=== PATIENT | male | born 1935 | race Caucasian/White ===

== ENCOUNTER 2021-08-06 16:02 | Inpatient (IN) | payer OTHER ==
[~2021-08-06] VITALS: Ht 185.4 cm; Wt 62.1 kg
[2021-08-06 16:07] VITALS: BP_SYST 163
--- NOTE | 2021-08-06 16:52 | NUR ---
Placed in room 07 . Placed on property assessment monitor, blood pressure machine and pulse oximeter. To gown for exam. Side rails up. Report given to ANGIE JAMES
--- NOTE | 2021-08-06 17:30 | NUR ---
A/OX4 VSS AT BEDSIDE, APPEARS TO BE IN NO ACUTE DISTRESS NOTED AT THIS TIME
[2021-08-06 18:13] LABS: BASOPHILS % (AUTO) 0.5 % (0.0-2.0); EOSINOPHILS % (AUTO) 0.2 % (0.0-4.0); HEMATOCRIT 30.3 % (36-54); HEMOGLOBIN 10.2 g/dL (14.0-18.0); LYMPHOCYTES # (AUTO) 0.6 K/uL (1.0-5.5); LYMPHOCYTES % (AUTO) 8.6 % (20.5-51.5); MEAN CORPUSCULAR HEMOGLOBIN 32 pg (27-31); MEAN CORPUSCULAR HGB CONC 34 % (32-36); MEAN CORPUSCULAR VOLUME 96 fL (79.0-98.0); MONOCYTES # (AUTO) 0.7 K/uL (0.0-1.0); MONOCYTES % (AUTO) 10.6 % (1.7-9.3); NEUTROPHILS # (AUTO) 5.4 K/uL (1.8-7.7); NEUTROPHILS % (AUTO) 80.1 % (40.0-70.0); PLATELET COUNT (AUTO) 155 K/uL (130-430); RED BLOOD CELL COUNT(AUTO) 3.15 MIL/uL (4.2-6.2); RED CELL DISTRIBUTION WIDTH 17.5 % (9.0-15.0); WHITE BLOOD COUNT (AUTO) 6.8 K/uL (4.8-10.8)
[2021-08-06 18:17] LABS: ANION GAP 6 (5-15); CALCIUM 7.9 mg/dL (8.4-11.0); CHLORIDE 97 mmol/L (98-107); CREATININE 0.84 mg/dL (0.55-1.30); GLUCOSE 91 mg/dL (70-99); POTASSIUM 4.5 mmol/L (3.5-5.1); SODIUM SERUM 127 mmol/L (136-145); UREA NITROGEN, BLOOD 24 mg/dL (8-21)
[2021-08-06 18:21] LABS: INR 1.3 (0.80-1.20); PROTHROMBIN TIME 12.9 SECS (9.5-12.5)
[2021-08-06 18:29] LABS: ALANINE AMINOTRANSFERASE 26 U/L (12-78); ALBUMIN 2.6 g/dL (3.4-4.8); ASPARTATE AMINOTRANSFERASE 35 U/L (10-37)
--- NOTE | 2021-08-06 19:20 | NUR ---
Critical lab value reported by lab. D-Dimer [id number]. Dr. Antony made aware.
--- NOTE | 2021-08-06 20:09 | NUR ---
PROVIDED A PILLOW TO PATIENT, NO OTHER NEEDS AT THIS TIME. RESTING IN BED WITH FAMILY AT BEDSIDE.
[2021-08-06] MEDS ORDERED: FUROSEMIDE 20 MG/2 ML VIAL IVP ONE (20:45)
[2021-08-06] MEDS ORDERED: MORPHINE 2 MG/ML INJ. SYRINGE IVP PRN (21:45)
[2021-08-06] MEDS ORDERED: ONDANSETRON HCL 4 MG/2 ML VIAL IVP PRN (21:45)
[2021-08-06] MEDS ORDERED: HYDROcodone/ACETAMIN 5-325 MG TAB (NORCO/ VICODIN) PO PRN (21:45)
--- NOTE | 2021-08-06 22:19 | NUR ---
Admit bed requested Patient will be admitted to care of . Admitted to TELE unit. Diagnosis CHF Inpatient (Yes or No) YES Observation (Yes or No) NO Orientation concerns or request close to nursing station (Yes or No) NO Covid Status NEGATIVE On vent or bipap NO Isolation requirements NO Needs a sitter NO From Home (Yes or if No enter name of facility) YES Requires Dialysis (Yes or No) NO Med Rec Completed (Yes of No) PENDING
--- NOTE | 2021-08-06 22:25 | NUR ---
# 20 gauge angiocath placed to . Use of asceptic technique. Opsite placed over site. Blood return noted. Blood for lab drawn from site. Flushed with 10 cc of normal saline. No evidence of infiltration noted. Patient tolerated well.
--- NOTE | 2021-08-06 22:29 | NUR ---
Patient will be admitted to care of TELE . Admitted to unit. Will go to room . Belongings list completed. Complete and up to date summary report printed. SBAR report to be given at bedside with opportunity for questions.
--- NOTE | 2021-08-06 22:50 | NUR ---
Admission Note Received patient from ER with diagnosis of CHF. Initial Plan of Care discussed-patient verbalized understanding. Oriented to room, call light, pain management and safety.
[2021-08-06 22:55] VITALS: BP_SYST 144
[2021-08-07] VITALS (7 sets, daily range): BP systolic 102–148
--- NOTE | 2021-08-07 04:27 | NUR ---
CONSULT CALLED FOR DR. CASILLAS I SPOKE TO MARIANO GALLEGOS REASON FOR CONSULT: CHF REQUESTING CONSULT:[employer] SALESPERSON PHONE NUMBER: [phone]
--- NOTE | 2021-08-07 06:14 | NUR ---
CLOSING NOTE PATIENT IN BED, SLEEPING COMFORTABLY. NO S/S OF ACUTE DISTRESS NOTED. BREATHING EVEN AND UNLABORED, HOB RAISED, NASAL CANULA ATTACHED PROPERLY ON 2L OF OXYGEN. IV SITE PATENT, NO SIGNS OF INFILTRATION OR INFECTION NOTED. ALL NEEDS MET THROUGHOUT SHIFT. FALL, SAFETY PRECAUTIONS MAINTAINED THROUGHOUT SHIFT. WILL CONTINUE TO MONITOR UNTIL PATIENT CARE IS ENDORSED TO ONCOMING DAYSHIFT NURSE.
[2021-08-07 07:53] LABS: BASOPHILS % (AUTO) 0.6 % (0.0-2.0); EOSINOPHILS % (AUTO) 0.4 % (0.0-4.0); HEMATOCRIT 29.4 % (36-54); LYMPHOCYTES # (AUTO) 0.6 K/uL (1.0-5.5); LYMPHOCYTES % (AUTO) 9.4 % (20.5-51.5); MEAN CORPUSCULAR HEMOGLOBIN 33 pg (27-31); MEAN CORPUSCULAR HGB CONC 34 % (32-36); MEAN CORPUSCULAR VOLUME 97 fL (79.0-98.0); MONOCYTES # (AUTO) 0.8 K/uL (0.0-1.0); MONOCYTES % (AUTO) 12.9 % (1.7-9.3); NEUTROPHILS % (AUTO) 76.7 % (40.0-70.0); PLATELET COUNT (AUTO) 153 K/uL (130-430); RED BLOOD CELL COUNT(AUTO) 3.04 MIL/uL (4.2-6.2); RED CELL DISTRIBUTION WIDTH 17.3 % (9.0-15.0); WHITE BLOOD COUNT (AUTO) 6.5 K/uL (4.8-10.8)
[2021-08-07] MEDS: IPRATROPIUM BROM 0.5 MG/2.5 ML VIAL.NEB (ATROVENT) INH SCH ×4 (08:03→23:00)
[2021-08-07 08:14] LABS: ANION GAP 3 (5-15); CALCIUM 7.8 mg/dL (8.4-11.0); CHLORIDE 101 mmol/L (98-107); CREATININE 0.76 mg/dL (0.55-1.30); GLUCOSE 69 mg/dL (70-99); PHOSPHORUS 3.7 mg/dL (2.7-4.5); POTASSIUM 3.9 mmol/L (3.5-5.1); SODIUM SERUM 133 mmol/L (136-145); UREA NITROGEN, BLOOD 18 mg/dL (8-21)
[2021-08-07] MEDS: CARVEDILOL 6.25 MG TABLET (COREG) PO SCH ×2 (09:00→23:17)
[2021-08-07] MEDS ORDERED: FUROSEMIDE 40 MG/4 ML VIAL IVP SCH (09:00)
[2021-08-07] MEDS: TAMSULOSIN HCL 0.4 MG CAP PO SCH (09:19)
[2021-08-07] MEDS: ASPIRIN 81 MG TAB.CHEW PO SCH (09:19)
[2021-08-07] MEDS: AMIODARONE HCL 200 MG TABLET PO SCH (09:32)
[2021-08-07] MEDS ORDERED: FUROSEMIDE 40 MG/4 ML VIAL IVP ONE (14:30)
--- NOTE | 2021-08-07 20:00 | NUR ---
Report received from Luna Bedolla. Pt a/o x4, vs stable, SR to SB with 1st degree av block. No sign of distress, denies any pain. Side rails up, call light within reach, bed alarm on, bed to lowest position. Assuming care for pt.
[2021-08-08] MEDS: ACETAMINOPHEN 325 MG TABLET PO PRN ×2 (00:40→12:55)
--- NOTE | 2021-08-08 06:00 | NUR ---
No significant changes, pt remains stable.
[2021-08-08] MEDS: IPRATROPIUM BROM 0.5 MG/2.5 ML VIAL.NEB (ATROVENT) INH SCH ×3 (07:39→15:00)
[2021-08-08 08:00] VITALS: BP_SYST 98
[2021-08-08] MEDS ORDERED: FUROSEMIDE 40 MG/4 ML VIAL IVP SCH (09:00)
[2021-08-08] MEDS: ASPIRIN 81 MG TAB.CHEW PO SCH (09:00)
[2021-08-08] MEDS: CARVEDILOL 6.25 MG TABLET (COREG) PO SCH (09:00)
[2021-08-08] MEDS: AMIODARONE HCL 200 MG TABLET PO SCH (09:00)
[2021-08-08] MEDS ORDERED: lisinopriL 5 MG TABLET PO SCH (09:00)
[2021-08-08] MEDS: TAMSULOSIN HCL 0.4 MG CAP PO SCH (09:00)
--- NOTE | 2021-08-08 09:04 | NUR ---
PT AAOX3 AM BLOOD PRESSURE MEDICATIONS NOT GIVEN SBP 98.
[2021-08-08] MEDS ORDERED: TAMS-11 PO (09:28)
[2021-08-08] MEDS ORDERED: FURO-149 PO (09:28)
--- NOTE | 2021-08-08 11:00 | NUR ---
DISCHARGE ORDER NOTED.PT AWAITING CM TO SET UP HOME HEALTH.PT DAUGHTER FOR AWAITING TRANSPORTATION.
[2021-08-08 12:00] VITALS: BP_SYST 116
[2021-08-08 14:07] VITALS: BP_SYST 114
[2021-08-08 14:51] VITALS: BP_SYST 117
--- NOTE | 2021-08-08 15:29 | NUR ---
Patient will Dc home, follow up PDV has been shcedule please provide copy to patient Dr. Russell PCP Date& Time: 08/11/21 at 2:00PM
--- NOTE | 2021-08-08 15:45 | NUR ---
DAUGHTER AT BEDSIDE.PATIENT AAOX4 NAD NOTED. DISCHARGE EDUCATION PROVIDED. PT AND DAUGHTER VERBALIZED UNDERSTANDING OF TEACHINGS.LEFT FA PIV DISCONTINUE. PT ESCORTED TO PRIVATE VEHICLE WITHOUT INCIDENT.
--- NOTE | 2021-08-09 08:12 | NUR ---
PHYSICAL THERAPY CO-SIGN The Physical Therapy Progress Notes documented by School Secretary have been reviewed. Reviewed/Co-Signed by: Bryce Anglin Documentation Done by: KADIE BAEZ PTA Addendum: 08/09/21 at 0813 by Bryce Anglin PT Amended: Links added.
--- NOTE | 2021-08-23 11:38 | NUR ---
Unit Support Representative [employer] INS[employer] made a Post Discharge Follow-Up Phone Call to former pt. Mickey Sanz whose daughter, Deepthi Tafoya answered stating her dad is ok, 88+ years old. Mickey had a PCP phone call 2 days after his discharge. Re. the outpatient Cardio apt., they are waiting for the PCP to get a referral to them. Deepthi did not have any questions or concerns.
== END 2021-08-08 15:45 | disposition home health service (06) | DRG 641 ==
LOC: SED 16:02 → STU 21:26
PROVIDERS: ADMIT Student in an Organized Health Care Education/Training Program; ATTEND Student in an Organized Health Care Education/Training Program
DX: E87.1 Hypo-osmolality and hyponatremia (principal); E44.0 Moderate protein-calorie malnutrition; I50.32 Chronic diastolic (congestive) heart failure; D64.9 Anemia, unspecified; I11.0 Hypertensive heart disease with heart failure; R06.03 Acute respiratory distress; Z20.822 Contact with and (suspected) exposure to COVID-19; E88.09 Other disorders of plasma-protein metabolism, not elsewhere classified; Z87.891 Personal history of nicotine dependence; Z95.2 Presence of prosthetic heart valve; Z95.1 Presence of aortocoronary bypass graft
CPT/HCPCS: 36415; 71045; 80048; 80053; 82550; 83735; 83880; 84100; 84484; 85025; 85379; 85610-TC; 85730-TC; 87040; 93005; 93306; 93970; 94640; 96374; 97110-GP; 97116-GP; 99285; G0378; J1940

== ENCOUNTER 2022-02-22 08:52 | Inpatient (IN) | payer OTHER ==
[~2022-02-22] VITALS: Ht 170.2 cm; Wt 72.6 kg
[~2022-02-22 08:52] MED LIST: FURO-149 PO; TAMS-11 PO
[2022-02-22 09:25] VITALS: BP_SYST 106
[2022-02-22 09:48] LABS: ANION GAP 10 (5-15); CALCIUM 9.9 mg/dL (8.4-11.0); GLUCOSE 101 mg/dL (70-99); UREA NITROGEN, BLOOD 34 mg/dL (8-21)
[2022-02-22 09:50] LABS: CHLORIDE 83 mmol/L (98-107)
[2022-02-22 09:55] LABS: ALANINE AMINOTRANSFERASE 22 U/L (12-78); ALBUMIN 2.6 g/dL (3.4-4.8); ASPARTATE AMINOTRANSFERASE 52 U/L (10-37); TOTAL BILIRUBIN 0.8 mg/dL (0.0-1.0)
[2022-02-22 09:58] LABS: BASOPHILS % (AUTO) 0.3 % (0.0-2.0); EOSINOPHILS # (AUTO) 0.1 K/uL (0.0-0.4); EOSINOPHILS % (AUTO) 0.7 % (0.0-4.0); HEMATOCRIT 29.7 % (36-54); HEMOGLOBIN 10.1 g/dL (14.0-18.0); LYMPHOCYTES # (AUTO) 0.4 K/uL (1.0-5.5); LYMPHOCYTES % (AUTO) 4.4 % (20.5-51.5); MEAN CORPUSCULAR HEMOGLOBIN 32 pg (27-31); MEAN CORPUSCULAR HGB CONC 34 % (32-36); MEAN CORPUSCULAR VOLUME 95 fL (79.0-98.0); MONOCYTES # (AUTO) 0.8 K/uL (0.0-1.0); MONOCYTES % (AUTO) 10.1 % (1.7-9.3); NEUTROPHILS # (AUTO) 6.8 K/uL (1.8-7.7); NEUTROPHILS % (AUTO) 84.5 % (40.0-70.0); PLATELET COUNT (AUTO) 310 K/uL (130-430); RED BLOOD CELL COUNT(AUTO) 3.12 MIL/uL (4.2-6.2); RED CELL DISTRIBUTION WIDTH 15.9 % (9.0-15.0); WHITE BLOOD COUNT (AUTO) 8.1 K/uL (4.8-10.8)
[2022-02-22] MEDS ORDERED: PIPERACILLIN/TAZO 3.375 GM in NS 50 ML IV ONE (10:15)
[2022-02-22] MEDS ORDERED: PIPERACILLIN/TAZOBACTAM 3.375 GM/VIAL (ZOSYN) IV ONE (10:43)
[2022-02-22] MEDS ORDERED: NS 500 ML IV ONE (10:45)
[2022-02-22 16:17] VITALS: BP_SYST 134
[2022-02-22 16:20] LABS: BILIRUBIN,URINE NEGATIVE (NEGATIVE); BLOOD, URINE NEGATIVE (NEGATIVE); CLARITY/URINE CLEAR (CLEAR); COLOR,URINE YELLOW (YELLOW); GLUCOSE,URINE NEGATIVE (NEGATIVE); KETONES,URINE NEGATIVE (NEGATIVE); LEUKOCYTE ESTERASE ,URINE NEGATIVE (NEGATIVE); NITRITE, URINE NEGATIVE (NEGATIVE); PH,URINE 6.5 (5.0-8.0); PROTEIN URINE NEGATIVE (NEGATIVE); UROBILINOGEN,URINE 0.2 (0.2-1.0)
[2022-02-22] MEDS ORDERED: METHYLPREDNISOLONE SOD SUCC 40 MG/ML VIAL IVP ONE (18:15)
[2022-02-22 20:00] VITALS: BP_SYST 98
[2022-02-22] MEDS: METHYLPREDNISOLONE SOD SUCC 40 MG/ML VIAL IVP SCH (22:08)
[2022-02-23] VITALS (7 sets, daily range): BP systolic 95–107
[2022-02-23 07:01] LABS: BASOPHILS % (AUTO) 0.1 % (0.0-2.0); HEMOGLOBIN 10.1 g/dL (14.0-18.0); LYMPHOCYTES # (AUTO) 0.2 K/uL (1.0-5.5); LYMPHOCYTES % (AUTO) 5.3 % (20.5-51.5); MEAN CORPUSCULAR HEMOGLOBIN 33 pg (27-31); MEAN CORPUSCULAR HGB CONC 34 % (32-36); MEAN CORPUSCULAR VOLUME 96 fL (79.0-98.0); MONOCYTES # (AUTO) 0.1 K/uL (0.0-1.0); MONOCYTES % (AUTO) 1.4 % (1.7-9.3); NEUTROPHILS # (AUTO) 4.3 K/uL (1.8-7.7); NEUTROPHILS % (AUTO) 93.2 % (40.0-70.0); PLATELET COUNT (AUTO) 299 K/uL (130-430); RED BLOOD CELL COUNT(AUTO) 3.12 MIL/uL (4.2-6.2); RED CELL DISTRIBUTION WIDTH 15.8 % (9.0-15.0); WHITE BLOOD COUNT (AUTO) 4.6 K/uL (4.8-10.8)
[2022-02-23 07:17] LABS: ANION GAP 7 (5-15); CALCIUM 9.5 mg/dL (8.4-11.0); CHLORIDE 91 mmol/L (98-107); CREATININE 0.58 mg/dL (0.55-1.30); GLUCOSE 148 mg/dL (70-99); UREA NITROGEN, BLOOD 30 mg/dL (8-21)
[2022-02-23] MEDS ORDERED: MILK OF MAGNESIA 30 ML UDC PO PRN (08:00)
[2022-02-23] MEDS ORDERED: BISACODYL 10 MG/SUPPOSITORY RC ONE (08:00)
[2022-02-23] MEDS ORDERED: METO5TAB9 PO (10:20)
[2022-02-23] MEDS ORDERED: DIGO0.12 PO (10:20)
[2022-02-23] MEDS ORDERED: ASCO500T20 PO (10:20)
[2022-02-23] MEDS ORDERED: TAMS-11 PO (10:21)
[2022-02-23] MEDS: cefTRIAXone 1 GM in D5W 50 ML IV SCH (11:04)
[2022-02-23] MEDS: METHYLPREDNISOLONE SOD SUCC 40 MG/ML VIAL IVP SCH ×2 (11:35→21:40)
[2022-02-23] MEDS ORDERED: ASA81 PO (11:44)
[2022-02-23] MEDS ORDERED: FOLI-43 PO (11:44)
[2022-02-23] MEDS ORDERED: FERR324T11 PO (11:44)
[2022-02-23] MEDS: AZITHROMYCIN 250 MG in NS 250 ML IV SCH (13:31)
[2022-02-23] MEDS: TEMAZEPAM 7.5 MG CAPSULE PO PRN (21:40)
[2022-02-24] VITALS: BP_SYST 101
[2022-02-24 04:00] VITALS: BP_SYST 98
[2022-02-24] MEDS: IPRATROPIUM/ALBUTEROL SULFATE 3 ML AMPUL.NEB (DUONEB) INH SCH ×3 (07:19→19:00)
[2022-02-24 07:28] LABS: INR 1.1 (0.80-1.20)
[2022-02-24 07:35] LABS: CHLORIDE 92 mmol/L (98-107)
[2022-02-24 08:04] LABS: ALANINE AMINOTRANSFERASE 17 U/L (12-78); ALBUMIN 2.4 g/dL (3.4-4.8); ANION GAP 8 (5-15); ASPARTATE AMINOTRANSFERASE 27 U/L (10-37); CALCIUM 9.3 mg/dL (8.4-11.0); CHOLESTEROL 110 mg/dL (<200); CREATININE 0.79 mg/dL (0.55-1.30); GLUCOSE 144 mg/dL (70-99); HDL CHOLESTEROL 43 mg/dL (>45); THYROID STIMULATING HORMONE 2.18 uIu/mL (0.34-4.82); TOTAL BILIRUBIN 0.4 mg/dL (0.0-1.0); TRIGLYCERIDES 67 mg/dL (30-150); UREA NITROGEN, BLOOD 45 mg/dL (8-21)
[2022-02-24 08:12] LABS: BASOPHILS % (AUTO) 0.1 % (0.0-2.0); EOSINOPHILS % (AUTO) 0.1 % (0.0-4.0); HEMATOCRIT 30.5 % (36-54); HEMOGLOBIN 10.2 g/dL (14.0-18.0); LYMPHOCYTES # (AUTO) 0.5 K/uL (1.0-5.5); LYMPHOCYTES % (AUTO) 5.9 % (20.5-51.5); MEAN CORPUSCULAR HEMOGLOBIN 33 pg (27-31); MEAN CORPUSCULAR HGB CONC 34 % (32-36); MEAN CORPUSCULAR VOLUME 97 fL (79.0-98.0); MONOCYTES # (AUTO) 0.4 K/uL (0.0-1.0); MONOCYTES % (AUTO) 5.1 % (1.7-9.3); NEUTROPHILS # (AUTO) 7.4 K/uL (1.8-7.7); NEUTROPHILS % (AUTO) 88.8 % (40.0-70.0); PLATELET COUNT (AUTO) 295 K/uL (130-430); RED BLOOD CELL COUNT(AUTO) 3.14 MIL/uL (4.2-6.2); RED CELL DISTRIBUTION WIDTH 15.9 % (9.0-15.0); WHITE BLOOD COUNT (AUTO) 8.4 K/uL (4.8-10.8)
[2022-02-24 08:36] VITALS: BP_SYST 98
[2022-02-24] MEDS: METHYLPREDNISOLONE SOD SUCC 40 MG/ML VIAL IVP SCH ×2 (10:05→21:53)
[2022-02-24] MEDS: cefTRIAXone 1 GM in D5W 50 ML IV SCH (10:10)
[2022-02-24] MEDS: FUROSEMIDE 40 MG TABLET PO SCH (10:41)
[2022-02-24] MEDS: AZITHROMYCIN 250 MG in NS 250 ML IV SCH (11:25)
[2022-02-24 12:06] LABS: ANTI NUCLEAR AB WITH REFLEX Negative (Negative)
[2022-02-24 12:32] LABS: HEMATOCRIT 32.9 % (36-54); LYMPHOCYTES # (AUTO) 0.2 K/uL (1.0-5.5); LYMPHOCYTES % (AUTO) 2.4 % (20.5-51.5); MEAN CORPUSCULAR HEMOGLOBIN 32 pg (27-31); MEAN CORPUSCULAR HGB CONC 33 % (32-36); MEAN CORPUSCULAR VOLUME 97 fL (79.0-98.0); MONOCYTES # (AUTO) 0.6 K/uL (0.0-1.0); MONOCYTES % (AUTO) 5.9 % (1.7-9.3); NEUTROPHILS # (AUTO) 9.4 K/uL (1.8-7.7); NEUTROPHILS % (AUTO) 91.7 % (40.0-70.0); PLATELET COUNT (AUTO) 333 K/uL (130-430); RED CELL DISTRIBUTION WIDTH 15.9 % (9.0-15.0); WHITE BLOOD COUNT (AUTO) 10.2 K/uL (4.8-10.8)
[2022-02-24 17:05] VITALS: BP_SYST 105
[2022-02-24 21:30] VITALS: BP_SYST 116
[2022-02-24] MEDS: TEMAZEPAM 7.5 MG CAPSULE PO PRN (21:55)
[2022-02-25 01:00] VITALS: BP_SYST 112
[2022-02-25 01:36] LABS: BILIRUBIN,URINE NEGATIVE (NEGATIVE); BLOOD, URINE NEGATIVE (NEGATIVE); CLARITY/URINE CLEAR (CLEAR); COLOR,URINE YELLOW (YELLOW); GLUCOSE,URINE NEGATIVE (NEGATIVE); KETONES,URINE NEGATIVE (NEGATIVE); LEUKOCYTE ESTERASE ,URINE NEGATIVE (NEGATIVE); NITRITE, URINE NEGATIVE (NEGATIVE); PROTEIN URINE NEGATIVE (NEGATIVE); UROBILINOGEN,URINE 0.2 (0.2-1.0)
[2022-02-25] MEDS: IPRATROPIUM/ALBUTEROL SULFATE 3 ML AMPUL.NEB (DUONEB) INH SCH ×3 (01:51→13:00)
[2022-02-25 07:59] LABS: ANION GAP 7 (5-15); CALCIUM 9.6 mg/dL (8.4-11.0); CHLORIDE 93 mmol/L (98-107); CREATININE 0.65 mg/dL (0.55-1.30); GLUCOSE 149 mg/dL (70-99); UREA NITROGEN, BLOOD 42 mg/dL (8-21)
[2022-02-25 08:03] LABS: HEMOGLOBIN 10.1 g/dL (14.0-18.0); LYMPHOCYTES # (AUTO) 0.2 K/uL (1.0-5.5); LYMPHOCYTES % (AUTO) 1.9 % (20.5-51.5); MEAN CORPUSCULAR HEMOGLOBIN 33 pg (27-31); MEAN CORPUSCULAR HGB CONC 34 % (32-36); MEAN CORPUSCULAR VOLUME 97 fL (79.0-98.0); MONOCYTES # (AUTO) 0.3 K/uL (0.0-1.0); NEUTROPHILS % (AUTO) 95.1 % (40.0-70.0); PLATELET COUNT (AUTO) 326 K/uL (130-430); RED BLOOD CELL COUNT(AUTO) 3.09 MIL/uL (4.2-6.2); WHITE BLOOD COUNT (AUTO) 9.5 K/uL (4.8-10.8)
[2022-02-25 08:20] VITALS: BP_SYST 110
[2022-02-25] MEDS: METHYLPREDNISOLONE SOD SUCC 40 MG/ML VIAL IVP SCH ×2 (08:59→21:15)
[2022-02-25] MEDS: FUROSEMIDE 40 MG TABLET PO SCH (09:00)
[2022-02-25] MEDS: cefTRIAXone 1 GM in D5W 50 ML IV SCH (10:03)
[2022-02-25] MEDS: AZITHROMYCIN 250 MG in NS 250 ML IV SCH (11:05)
[2022-02-25 12:00] VITALS: BP_SYST 110
[2022-02-25] MEDS ORDERED: POTASSIUM CHLORIDE 20 MEQ TAB.PRT.SR PO ONE (14:15)
[2022-02-25 16:00] VITALS: BP_SYST 113
[2022-02-25] MEDS ORDERED: COMMUNICATION ORDER XX ONE (17:30)
[2022-02-25 20:00] VITALS: BP_SYST 119
[2022-02-25] MEDS: SILDENAFIL CITRATE 20 MG TABLET PO SCH (21:16)
[2022-02-25] MEDS: TEMAZEPAM 7.5 MG CAPSULE PO PRN (21:19)
[2022-02-26] MEDS: IPRATROPIUM/ALBUTEROL SULFATE 3 ML AMPUL.NEB (DUONEB) INH SCH ×5 (00:22→19:57)
[2022-02-26 00:40] VITALS: BP_SYST 100
[2022-02-26 06:55] LABS: BASOPHILS # (AUTO) 0.1 K/uL (0.0-0.2); BASOPHILS % (AUTO) 0.8 % (0.0-2.0); HEMATOCRIT 29.7 % (36-54); LYMPHOCYTES # (AUTO) 0.3 K/uL (1.0-5.5); LYMPHOCYTES % (AUTO) 3.4 % (20.5-51.5); MEAN CORPUSCULAR HEMOGLOBIN 33 pg (27-31); MEAN CORPUSCULAR HGB CONC 34 % (32-36); MEAN CORPUSCULAR VOLUME 97 fL (79.0-98.0); MONOCYTES # (AUTO) 0.1 K/uL (0.0-1.0); MONOCYTES % (AUTO) 1.6 % (1.7-9.3); NEUTROPHILS # (AUTO) 7.1 K/uL (1.8-7.7); NEUTROPHILS % (AUTO) 94.2 % (40.0-70.0); PLATELET COUNT (AUTO) 285 K/uL (130-430); RED BLOOD CELL COUNT(AUTO) 3.07 MIL/uL (4.2-6.2); WHITE BLOOD COUNT (AUTO) 7.5 K/uL (4.8-10.8)
[2022-02-26 07:30] LABS: ANION GAP 4 (5-15); CALCIUM 9.6 mg/dL (8.4-11.0); CHLORIDE 96 mmol/L (98-107); CREATININE 0.63 mg/dL (0.55-1.30); DIGOXIN 0.4 ng/mL (0.80-2.00); GLUCOSE 133 mg/dL (70-99); UREA NITROGEN, BLOOD 46 mg/dL (8-21)
[2022-02-26] MEDS: SILDENAFIL CITRATE 20 MG TABLET PO SCH ×3 (09:00→20:12)
[2022-02-26 09:36] VITALS: BP_SYST 98
[2022-02-26] MEDS: METHYLPREDNISOLONE SOD SUCC 40 MG/ML VIAL IVP SCH ×2 (09:42→20:12)
[2022-02-26] MEDS: cefTRIAXone 1 GM in D5W 50 ML IV SCH (09:42)
[2022-02-26] MEDS: AZITHROMYCIN 250 MG in NS 250 ML IV SCH (11:18)
[2022-02-26] MEDS: FUROSEMIDE 40 MG TABLET PO SCH (11:26)
[2022-02-26 11:50] VITALS: BP_SYST 110
[2022-02-26 16:45] VITALS: BP_SYST 105
[2022-02-26] MEDS ORDERED: DIGOXIN 0.125 MG TABLET PO ONE (17:30)
[2022-02-26 20:00] VITALS: BP_SYST 96
[2022-02-26] MEDS: TEMAZEPAM 7.5 MG CAPSULE PO PRN (21:17)
[2022-02-27] VITALS: BP_SYST 106; BP_SYST 96
[2022-02-27] MEDS: IPRATROPIUM/ALBUTEROL SULFATE 3 ML AMPUL.NEB (DUONEB) INH SCH ×4 (01:00→20:22)
[2022-02-27 07:20] LABS: BASOPHILS % (AUTO) 0.1 % (0.0-2.0); HEMATOCRIT 28.9 % (36-54); HEMOGLOBIN 9.8 g/dL (14.0-18.0); LYMPHOCYTES # (AUTO) 0.3 K/uL (1.0-5.5); LYMPHOCYTES % (AUTO) 4.2 % (20.5-51.5); MEAN CORPUSCULAR HEMOGLOBIN 33 pg (27-31); MEAN CORPUSCULAR HGB CONC 34 % (32-36); MEAN CORPUSCULAR VOLUME 97 fL (79.0-98.0); MONOCYTES # (AUTO) 0.4 K/uL (0.0-1.0); MONOCYTES % (AUTO) 5.4 % (1.7-9.3); NEUTROPHILS # (AUTO) 7.3 K/uL (1.8-7.7); NEUTROPHILS % (AUTO) 90.3 % (40.0-70.0); PLATELET COUNT (AUTO) 290 K/uL (130-430); RED BLOOD CELL COUNT(AUTO) 2.99 MIL/uL (4.2-6.2); RED CELL DISTRIBUTION WIDTH 15.9 % (9.0-15.0); WHITE BLOOD COUNT (AUTO) 8.1 K/uL (4.8-10.8)
[2022-02-27 07:34] LABS: ANION GAP 4 (5-15); CALCIUM 9.5 mg/dL (8.4-11.0); CHLORIDE 97 mmol/L (98-107); CREATININE 0.66 mg/dL (0.55-1.30); GLUCOSE 119 mg/dL (70-99); UREA NITROGEN, BLOOD 40 mg/dL (8-21)
[2022-02-27] MEDS: DIGOXIN 0.125 MG TABLET PO SCH (08:10)
[2022-02-27] MEDS: METHYLPREDNISOLONE SOD SUCC 40 MG/ML VIAL IVP SCH ×2 (08:11→20:13)
[2022-02-27] MEDS: FUROSEMIDE 40 MG TABLET PO SCH (08:11)
[2022-02-27] MEDS: cefTRIAXone 1 GM in D5W 50 ML IV SCH (08:12)
[2022-02-27] MEDS: SILDENAFIL CITRATE 20 MG TABLET PO SCH ×4 (08:12→21:03)
[2022-02-27] MEDS: AZITHROMYCIN 250 MG in NS 250 ML IV SCH (10:03)
[2022-02-27] MEDS ORDERED: METOPROLOL SUCCINATE 25 MG TAB.SR.24H (TOPROL XL) PO ONE (11:15)
[2022-02-27 11:53] VITALS: BP_SYST 93
[2022-02-27 13:06] LABS: ATYPICAL pANCA <1:20 titer (Neg:<1:20); CYTOPLASMIC (C-ANCA) <1:20 titer (Neg:<1:20); CYTOPLASMIC (P-ANCA) <1:20 titer (Neg:<1:20)
[2022-02-27 14:46] LABS: HEMATOCRIT 32.6 % (36-54); HEMOGLOBIN 10.6 g/dL (14.0-18.0); LYMPHOCYTES # (AUTO) 0.3 K/uL (1.0-5.5); LYMPHOCYTES % (AUTO) 3.5 % (20.5-51.5); MEAN CORPUSCULAR HEMOGLOBIN 32 pg (27-31); MEAN CORPUSCULAR HGB CONC 32 % (32-36); MEAN CORPUSCULAR VOLUME 99 fL (79.0-98.0); MONOCYTES # (AUTO) 0.3 K/uL (0.0-1.0); MONOCYTES % (AUTO) 3.4 % (1.7-9.3); NEUTROPHILS # (AUTO) 8.8 K/uL (1.8-7.7); NEUTROPHILS % (AUTO) 93.1 % (40.0-70.0); PLATELET COUNT (AUTO) 297 K/uL (130-430); RED BLOOD CELL COUNT(AUTO) 3.31 MIL/uL (4.2-6.2); RED CELL DISTRIBUTION WIDTH 16.3 % (9.0-15.0); WHITE BLOOD COUNT (AUTO) 9.4 K/uL (4.8-10.8)
[2022-02-27 16:37] VITALS: BP_SYST 93
[2022-02-27 20:00] VITALS: BP_SYST 93
[2022-02-27] MEDS: TEMAZEPAM 7.5 MG CAPSULE PO PRN (20:14)
[2022-02-28 00:26] VITALS: BP_SYST 95
[2022-02-28] MEDS: IPRATROPIUM/ALBUTEROL SULFATE 3 ML AMPUL.NEB (DUONEB) INH SCH ×4 (01:00→23:53)
[2022-02-28 08:00] VITALS: BP_SYST 118
[2022-02-28] MEDS: cefTRIAXone 1 GM in D5W 50 ML IV SCH (09:48)
[2022-02-28] MEDS: METHYLPREDNISOLONE SOD SUCC 40 MG/ML VIAL IVP SCH (09:50)
[2022-02-28] MEDS: METOPROLOL SUCCINATE 25 MG TAB.SR.24H (TOPROL XL) PO SCH (09:51)
[2022-02-28] MEDS: DIGOXIN 0.125 MG TABLET PO SCH (09:52)
[2022-02-28] MEDS: FUROSEMIDE 40 MG TABLET PO SCH (09:57)
[2022-02-28 11:00] VITALS: BP_SYST 105
[2022-02-28 15:25] VITALS: BP_SYST 110
[2022-02-28] MEDS: SILDENAFIL CITRATE 20 MG TABLET PO SCH ×2 (15:33→21:10)
[2022-02-28 20:00] VITALS: BP_SYST 111
[2022-02-28] MEDS: TEMAZEPAM 7.5 MG CAPSULE PO PRN (21:08)
[2022-03-01 00:12] VITALS: BP_SYST 94
[2022-03-01] MEDS: IPRATROPIUM/ALBUTEROL SULFATE 3 ML AMPUL.NEB (DUONEB) INH SCH ×4 (05:23→20:31)
[2022-03-01 08:00] VITALS: BP_SYST 96
[2022-03-01] MEDS: SILDENAFIL CITRATE 20 MG TABLET PO SCH ×3 (09:00→20:17)
[2022-03-01] MEDS: METOPROLOL SUCCINATE 25 MG TAB.SR.24H (TOPROL XL) PO SCH (09:00)
[2022-03-01] MEDS: FUROSEMIDE 40 MG TABLET PO SCH (09:00)
[2022-03-01] MEDS: predniSONE 10 MG TABLET PO SCH (09:31)
[2022-03-01] MEDS: DIGOXIN 0.125 MG TABLET PO SCH (09:31)
[2022-03-01] MEDS: cefTRIAXone 1 GM in D5W 50 ML IV SCH (09:32)
[2022-03-01 10:45] VITALS: BP_SYST 99
[2022-03-01 12:27] VITALS: BP_SYST 111
[2022-03-01 16:50] VITALS: BP_SYST 117
[2022-03-01] MEDS: BISACODYL 10 MG/SUPPOSITORY RC PRN (18:33)
[2022-03-01 20:00] VITALS: BP_SYST 130
[2022-03-01] MEDS: TAMSULOSIN HCL 0.4 MG CAP PO SCH (20:18)
[2022-03-01] MEDS: TEMAZEPAM 7.5 MG CAPSULE PO PRN (20:47)
[2022-03-02] VITALS: BP_SYST 107
[2022-03-02] MEDS: IPRATROPIUM/ALBUTEROL SULFATE 3 ML AMPUL.NEB (DUONEB) INH SCH ×4 (01:00→20:04)
[2022-03-02 07:07] LABS: BASOPHILS % (AUTO) 0.2 % (0.0-2.0); EOSINOPHILS % (AUTO) 0.3 % (0.0-4.0); HEMATOCRIT 31.1 % (36-54); HEMOGLOBIN 10.6 g/dL (14.0-18.0); LYMPHOCYTES # (AUTO) 0.5 K/uL (1.0-5.5); LYMPHOCYTES % (AUTO) 5.1 % (20.5-51.5); MEAN CORPUSCULAR HEMOGLOBIN 33 pg (27-31); MEAN CORPUSCULAR HGB CONC 34 % (32-36); MEAN CORPUSCULAR VOLUME 97 fL (79.0-98.0); MONOCYTES # (AUTO) 1.1 K/uL (0.0-1.0); MONOCYTES % (AUTO) 10.7 % (1.7-9.3); NEUTROPHILS # (AUTO) 8.8 K/uL (1.8-7.7); NEUTROPHILS % (AUTO) 83.7 % (40.0-70.0); PLATELET COUNT (AUTO) 263 K/uL (130-430); RED BLOOD CELL COUNT(AUTO) 3.21 MIL/uL (4.2-6.2); RED CELL DISTRIBUTION WIDTH 16.5 % (9.0-15.0); WHITE BLOOD COUNT (AUTO) 10.6 K/uL (4.8-10.8)
[2022-03-02 07:34] LABS: ANION GAP 2 (5-15); CALCIUM 9.1 mg/dL (8.4-11.0); CHLORIDE 101 mmol/L (98-107); CREATININE 0.62 mg/dL (0.55-1.30); GLUCOSE 93 mg/dL (70-99); UREA NITROGEN, BLOOD 34 mg/dL (8-21)
[2022-03-02 09:05] VITALS: BP_SYST 95
[2022-03-02] MEDS: predniSONE 10 MG TABLET PO SCH (09:06)
[2022-03-02 11:31] VITALS: BP_SYST 99
[2022-03-02] MEDS: METOPROLOL SUCCINATE 25 MG TAB.SR.24H (TOPROL XL) PO SCH (11:35)
[2022-03-02] MEDS: FUROSEMIDE 40 MG TABLET PO SCH (12:41)
[2022-03-02] MEDS: SILDENAFIL CITRATE 20 MG TABLET PO SCH ×4 (12:41→21:45)
[2022-03-02] MEDS: DIGOXIN 0.125 MG TABLET PO SCH (12:42)
[2022-03-02] MEDS: HYDROcodone/ACETAMIN 5-325 MG TAB (NORCO/ VICODIN) PO PRN ×2 (14:36→21:41)
[2022-03-02 19:47] VITALS: BP_SYST 95
[2022-03-02] MEDS: TAMSULOSIN HCL 0.4 MG CAP PO SCH (21:00)
[2022-03-02] MEDS: TEMAZEPAM 7.5 MG CAPSULE PO PRN (21:38)
[2022-03-02] MEDS: DOCUSATE SODIUM 100 MG CAPSULE PO SCH (21:43)
[2022-03-03] VITALS: BP_SYST 101
[2022-03-03] MEDS: IPRATROPIUM/ALBUTEROL SULFATE 3 ML AMPUL.NEB (DUONEB) INH SCH ×4 (01:00→20:12)
[2022-03-03 04:00] VITALS: BP_SYST 102
[2022-03-03] MEDS: HYDROcodone/ACETAMIN 5-325 MG TAB (NORCO/ VICODIN) PO PRN ×3 (07:27→21:50)
[2022-03-03 08:10] VITALS: BP_SYST 92
[2022-03-03] MEDS: METOPROLOL SUCCINATE 25 MG TAB.SR.24H (TOPROL XL) PO SCH (09:00)
[2022-03-03] MEDS: FUROSEMIDE 40 MG TABLET PO SCH (09:00)
[2022-03-03] MEDS: TAMSULOSIN HCL 0.4 MG CAP PO SCH (10:28)
[2022-03-03] MEDS: DIGOXIN 0.125 MG TABLET PO SCH (10:28)
[2022-03-03] MEDS: predniSONE 10 MG TABLET PO SCH (10:28)
[2022-03-03] MEDS: DOCUSATE SODIUM 100 MG CAPSULE PO SCH ×2 (10:29→21:51)
[2022-03-03 12:34] VITALS: BP_SYST 96
[2022-03-03] MEDS: SILDENAFIL CITRATE 20 MG TABLET PO SCH ×2 (15:54→21:00)
[2022-03-03 16:03] VITALS: BP_SYST 100
[2022-03-03 20:10] VITALS: BP_SYST 103
[2022-03-03] MEDS: TEMAZEPAM 7.5 MG CAPSULE PO PRN (21:49)
[2022-03-04 00:06] VITALS: BP_SYST 97
[2022-03-04] MEDS: IPRATROPIUM/ALBUTEROL SULFATE 3 ML AMPUL.NEB (DUONEB) INH SCH ×4 (01:17→21:14)
[2022-03-04 04:00] VITALS: BP_SYST 100
[2022-03-04] MEDS: HYDROcodone/ACETAMIN 5-325 MG TAB (NORCO/ VICODIN) PO PRN ×3 (06:05→21:08)
[2022-03-04 07:01] LABS: BASOPHILS % (AUTO) 0.1 % (0.0-2.0); EOSINOPHILS # (AUTO) 0.1 K/uL (0.0-0.4); EOSINOPHILS % (AUTO) 1.5 % (0.0-4.0); HEMATOCRIT 31.8 % (36-54); HEMOGLOBIN 10.4 g/dL (14.0-18.0); LYMPHOCYTES # (AUTO) 0.5 K/uL (1.0-5.5); MEAN CORPUSCULAR HEMOGLOBIN 32 pg (27-31); MEAN CORPUSCULAR HGB CONC 33 % (32-36); MEAN CORPUSCULAR VOLUME 99 fL (79.0-98.0); MONOCYTES # (AUTO) 0.5 K/uL (0.0-1.0); MONOCYTES % (AUTO) 10.9 % (1.7-9.3); NEUTROPHILS # (AUTO) 3.7 K/uL (1.8-7.7); NEUTROPHILS % (AUTO) 77.5 % (40.0-70.0); PLATELET COUNT (AUTO) 188 K/uL (130-430); RED BLOOD CELL COUNT(AUTO) 3.23 MIL/uL (4.2-6.2); RED CELL DISTRIBUTION WIDTH 16.7 % (9.0-15.0); WHITE BLOOD COUNT (AUTO) 4.7 K/uL (4.8-10.8)
[2022-03-04 07:19] LABS: ANION GAP 3 (5-15); C-REACTIVE PROTEIN QUANT 2.9 mg/dL (0-0.5); CALCIUM 9.2 mg/dL (8.4-11.0); CHLORIDE 103 mmol/L (98-107); CREATININE 0.53 mg/dL (0.55-1.30); GLUCOSE 98 mg/dL (70-99); UREA NITROGEN, BLOOD 33 mg/dL (8-21)
[2022-03-04 08:33] VITALS: BP_SYST 114
[2022-03-04] MEDS: predniSONE 10 MG TABLET PO SCH (09:55)
[2022-03-04] MEDS: DOCUSATE SODIUM 100 MG CAPSULE PO SCH ×2 (09:55→21:08)
[2022-03-04] MEDS: FUROSEMIDE 40 MG TABLET PO SCH (09:55)
[2022-03-04] MEDS: SILDENAFIL CITRATE 20 MG TABLET PO SCH ×3 (09:55→21:08)
[2022-03-04] MEDS: DIGOXIN 0.125 MG TABLET PO SCH (09:56)
[2022-03-04] MEDS: METOPROLOL SUCCINATE 25 MG TAB.SR.24H (TOPROL XL) PO SCH (09:56)
[2022-03-04 10:43] LABS: ERYTHROCYTE SEDIMENTATION RATE 49 MM/HR (0-15)
[2022-03-04 11:37] VITALS: BP_SYST 100
[2022-03-04 16:55] VITALS: BP_SYST 106
[2022-03-04 20:00] VITALS: BP_SYST 99
[2022-03-04] MEDS: TEMAZEPAM 7.5 MG CAPSULE PO PRN (21:08)
[2022-03-04] MEDS: TAMSULOSIN HCL 0.4 MG CAP PO SCH (21:08)
[2022-03-05] MEDS: IPRATROPIUM/ALBUTEROL SULFATE 3 ML AMPUL.NEB (DUONEB) INH SCH ×4 (01:00→21:31)
[2022-03-05 01:05] VITALS: BP_SYST 92
[2022-03-05] MEDS: HYDROcodone/ACETAMIN 5-325 MG TAB (NORCO/ VICODIN) PO PRN (05:11)
[2022-03-05 06:43] LABS: BASOPHILS % (AUTO) 0.2 % (0.0-2.0); EOSINOPHILS # (AUTO) 0.1 K/uL (0.0-0.4); EOSINOPHILS % (AUTO) 1.4 % (0.0-4.0); HEMATOCRIT 28.3 % (36-54); HEMOGLOBIN 9.4 g/dL (14.0-18.0); LYMPHOCYTES # (AUTO) 0.5 K/uL (1.0-5.5); LYMPHOCYTES % (AUTO) 9.1 % (20.5-51.5); MEAN CORPUSCULAR HEMOGLOBIN 32 pg (27-31); MEAN CORPUSCULAR HGB CONC 33 % (32-36); MEAN CORPUSCULAR VOLUME 98 fL (79.0-98.0); MONOCYTES # (AUTO) 0.7 K/uL (0.0-1.0); MONOCYTES % (AUTO) 12.7 % (1.7-9.3); NEUTROPHILS # (AUTO) 4.1 K/uL (1.8-7.7); NEUTROPHILS % (AUTO) 76.6 % (40.0-70.0); PLATELET COUNT (AUTO) 146 K/uL (130-430); RED CELL DISTRIBUTION WIDTH 16.7 % (9.0-15.0); WHITE BLOOD COUNT (AUTO) 5.4 K/uL (4.8-10.8)
[2022-03-05 07:32] LABS: ALANINE AMINOTRANSFERASE 41 U/L (12-78); ALBUMIN 2.2 g/dL (3.4-4.8); ANION GAP 3 (5-15); ASPARTATE AMINOTRANSFERASE 30 U/L (10-37); CALCIUM 8.8 mg/dL (8.4-11.0); CHLORIDE 102 mmol/L (98-107); CREATININE 0.65 mg/dL (0.55-1.30); GLUCOSE 90 mg/dL (70-99); TOTAL BILIRUBIN 0.5 mg/dL (0.0-1.0); UREA NITROGEN, BLOOD 36 mg/dL (8-21)
[2022-03-05 07:58] VITALS: BP_SYST 100
[2022-03-05 08:40] VITALS: BP_SYST 94
[2022-03-05] MEDS: METOPROLOL SUCCINATE 25 MG TAB.SR.24H (TOPROL XL) PO SCH (08:43)
[2022-03-05] MEDS: FUROSEMIDE 40 MG TABLET PO SCH (08:43)
[2022-03-05] MEDS: SILDENAFIL CITRATE 20 MG TABLET PO SCH ×3 (08:44→21:32)
[2022-03-05] MEDS: predniSONE 10 MG TABLET PO SCH (08:44)
[2022-03-05] MEDS: DOCUSATE SODIUM 100 MG CAPSULE PO SCH ×2 (08:44→21:32)
[2022-03-05] MEDS: DIGOXIN 0.125 MG TABLET PO SCH (08:45)
[2022-03-05 11:46] VITALS: BP_SYST 118
[2022-03-05 16:43] VITALS: BP_SYST 103
[2022-03-05 20:00] VITALS: BP_SYST 129
[2022-03-05] MEDS: TAMSULOSIN HCL 0.4 MG CAP PO SCH (21:32)
[2022-03-05] MEDS: TEMAZEPAM 15 MG CAPSULE PO PRN (22:45)
[2022-03-06] VITALS (19 sets, daily range): BP systolic 66–152
[2022-03-06] MEDS: IPRATROPIUM/ALBUTEROL SULFATE 3 ML AMPUL.NEB (DUONEB) INH SCH ×4 (01:00→19:35)
[2022-03-06] MEDS ORDERED: METOPROLOL SUCCINATE 25 MG TAB.SR.24H (TOPROL XL) PO ONE (04:30)
[2022-03-06] MEDS ORDERED: dilTIAZem HCL IVP 5 MG/ML VIAL IVP ONE (04:30)
[2022-03-06 06:57] LABS: HEMATOCRIT 35.1 % (36-54); HEMOGLOBIN 11.4 g/dL (14.0-18.0); MEAN CORPUSCULAR HEMOGLOBIN 32 pg (27-31); MEAN CORPUSCULAR HGB CONC 33 % (32-36); MEAN CORPUSCULAR VOLUME 99 fL (79.0-98.0); PLATELET COUNT (AUTO) 142 K/uL (130-430); RED BLOOD CELL COUNT(AUTO) 3.55 MIL/uL (4.2-6.2); RED CELL DISTRIBUTION WIDTH 17.1 % (9.0-15.0); WHITE BLOOD COUNT (AUTO) 16.2 K/uL (4.8-10.8)
[2022-03-06] MEDS ORDERED: ACETAMINOPHEN 325 MG TABLET PO PRN (07:15)
[2022-03-06 07:28] LABS: ANION GAP 8 (5-15); CALCIUM 9.7 mg/dL (8.4-11.0); CHLORIDE 101 mmol/L (98-107); CREATININE 0.69 mg/dL (0.55-1.30); GLUCOSE 88 mg/dL (70-99); UREA NITROGEN, BLOOD 34 mg/dL (8-21)
[2022-03-06] MEDS ORDERED: PIPERACILLIN/TAZO 3.375/DEX-IS 50 ML IV SCH (09:15)
[2022-03-06] MEDS ORDERED: NOREPINEPHRINE BITARTRATE 4 MG in D5W 246 ML IV PRN (09:15)
[2022-03-06] MEDS ORDERED: PANTOPRAZOLE SODIUM 40 MG/VIAL (PROTONIX) IVP ONE (09:30)
[2022-03-06 10:00] LABS: INR 1.1 (0.80-1.20); PROTHROMBIN TIME 11.5 SECS (9.5-12.5)
[2022-03-06 10:38] LABS: BAND % (MANUAL) 4 % (0-6); BASOPHILS % (MANUAL) 0 % (0-2); EOSINOPHILS % (MANUAL) 0 % (0-7); LYMPHOCYTES % (MANUAL) 1 % (20-46); MONOCYTES % (MANUAL) 5 % (0-11)
[2022-03-06] MEDS: ALBUMIN HUMAN 25% 50 ML IV SCH ×3 (11:11→21:01)
[2022-03-06] MEDS: PIPERACILLIN/TAZO 3.375/DEX-IS 50 ML IV SCH ×3 (11:12→21:01)
[2022-03-06] MEDS: D5NS 1,000 ML IV SCH (11:14)
[2022-03-06] MEDS: NOREPINEPHRINE BITARTRATE 32 MG in NS 218 ML IV PRN (12:13)
[2022-03-06] MEDS: PHENYLEPHRINE HCL 100 MG in NS 240 ML IV PRN (13:58)
[2022-03-06] MEDS ORDERED: NALOXONE HCL 0.4 MG/ML AMP (NARCAN) IVP PRN (17:30)
[2022-03-06 19:13] LABS: HEMATOCRIT 29.9 % (36-54); HEMOGLOBIN 9.8 g/dL (14.0-18.0)
[2022-03-06] MEDS: PANTOPRAZOLE SODIUM 40 MG/VIAL (PROTONIX) IVP SCH (21:00)
[2022-03-06] MEDS ORDERED: AMIODARONE HCL 150 MG in D5W 100 ML IV ONE (22:00)
[2022-03-06] MEDS ORDERED: AMIODARONE HCL 150 MG/3ML VIAL ONE (22:04)
[2022-03-06] MEDS ORDERED: AMIODARONE HCL 450 MG/9 ML VIAL IV ONE (22:05)
[2022-03-06] MEDS: AMIODARONE HCL 450 MG in D5W 241 ML IV SCH (22:52)
[2022-03-07] VITALS (24 sets, daily range): BP systolic 90–140
[2022-03-07] MEDS: IPRATROPIUM/ALBUTEROL SULFATE 3 ML AMPUL.NEB (DUONEB) INH SCH ×4 (01:00→19:50)
[2022-03-07] MEDS: ALBUMIN HUMAN 25% 50 ML IV SCH ×2 (03:15→08:39)
[2022-03-07] MEDS: PIPERACILLIN/TAZO 3.375/DEX-IS 50 ML IV SCH ×3 (05:03→22:05)
[2022-03-07 05:43] LABS: BASOPHILS % (AUTO) 0.1 % (0.0-2.0); EOSINOPHILS % (AUTO) 0.1 % (0.0-4.0); HEMATOCRIT 24.9 % (36-54); HEMOGLOBIN 8.3 g/dL (14.0-18.0); LYMPHOCYTES # (AUTO) 0.5 K/uL (1.0-5.5); LYMPHOCYTES % (AUTO) 2.3 % (20.5-51.5); MEAN CORPUSCULAR HEMOGLOBIN 33 pg (27-31); MEAN CORPUSCULAR HGB CONC 34 % (32-36); MONOCYTES # (AUTO) 1.6 K/uL (0.0-1.0); MONOCYTES % (AUTO) 8.1 % (1.7-9.3); NEUTROPHILS % (AUTO) 89.4 % (40.0-70.0); PLATELET COUNT (AUTO) 98 K/uL (130-430); RED BLOOD CELL COUNT(AUTO) 2.57 MIL/uL (4.2-6.2); RED CELL DISTRIBUTION WIDTH 16.9 % (9.0-15.0); WHITE BLOOD COUNT (AUTO) 20.1 K/uL (4.8-10.8)
[2022-03-07 06:12] LABS: ALANINE AMINOTRANSFERASE 34 U/L (12-78); ALBUMIN 2.6 g/dL (3.4-4.8); ANION GAP 7 (5-15); ASPARTATE AMINOTRANSFERASE 29 U/L (10-37); CALCIUM 8.5 mg/dL (8.4-11.0); CHLORIDE 105 mmol/L (98-107); CREATININE 0.54 mg/dL (0.55-1.30); GLUCOSE 136 mg/dL (70-99); UREA NITROGEN, BLOOD 29 mg/dL (8-21)
[2022-03-07 07:15] LABS: MEAN CORPUSCULAR VOLUME 97 fL (79.0-98.0)
[2022-03-07] MEDS: AMIODARONE HCL 450 MG in D5W 241 ML IV SCH (07:18)
[2022-03-07] MEDS: PANTOPRAZOLE SODIUM 40 MG/VIAL (PROTONIX) IVP SCH ×2 (08:38→22:04)
[2022-03-07] MEDS: D5NS 1,000 ML IV SCH (08:40)
[2022-03-07] MEDS: NOREPINEPHRINE BITARTRATE 32 MG in NS 218 ML IV PRN (08:55)
[2022-03-07] MEDS ORDERED: SIMETHICONE 40 MG/0.6 ML ML ONE (09:46)
[2022-03-07] MEDS ORDERED: BENZOCAINE 20% 0.5mL UD SPRAY MM ONE (09:46)
[2022-03-07] MEDS: MIDAZOLAM HCL 5 MG/5 ML VIAL ONE ×3 (10:06→10:12)
[2022-03-07] MEDS: fentaNYL CITRATE/PF 100 MCG/2 ML AMP ONE ×2 (10:06→10:12)
[2022-03-07] MEDS ORDERED: POLYETHYLENE GLYCOL 3350, 17 GM/ POWD.PACK PO ONE (10:30)
[2022-03-07] MEDS ORDERED: KCL 20 mEq in 100 mL (PREMIX) 100 ML IV ONE (10:45)
[2022-03-07] MEDS: MORPHINE 2 MG/ML INJ. SYRINGE IVP PRN ×2 (17:49→22:07)
[2022-03-07 19:59] LABS: HEMATOCRIT 26.7 % (36-54); HEMOGLOBIN 8.8 g/dL (14.0-18.0)
[2022-03-07] MEDS: TEMAZEPAM 15 MG CAPSULE PO PRN (22:07)
[2022-03-08] VITALS (29 sets, daily range): BP systolic 90–157
[2022-03-08] MEDS: D5NS 1,000 ML IV SCH ×2 (00:51→20:07)
[2022-03-08] MEDS: IPRATROPIUM/ALBUTEROL SULFATE 3 ML AMPUL.NEB (DUONEB) INH SCH ×4 (01:00→19:35)
[2022-03-08 06:58] LABS: ANION GAP 6 (5-15); CALCIUM 8.6 mg/dL (8.4-11.0); CHLORIDE 105 mmol/L (98-107); CREATININE 0.33 mg/dL (0.55-1.30); GLUCOSE 139 mg/dL (70-99); UREA NITROGEN, BLOOD 18 mg/dL (8-21)
[2022-03-08] MEDS: PIPERACILLIN/TAZO 3.375/DEX-IS 50 ML IV SCH ×3 (06:58→22:14)
[2022-03-08] MEDS: MORPHINE 2 MG/ML INJ. SYRINGE IVP PRN ×2 (08:15→20:07)
[2022-03-08] MEDS: PANTOPRAZOLE SODIUM 40 MG/VIAL (PROTONIX) IVP SCH ×2 (08:16→20:06)
[2022-03-08 08:30] LABS: BASOPHILS % (AUTO) 0.1 % (0.0-2.0); EOSINOPHILS % (AUTO) 0.1 % (0.0-4.0); HEMOGLOBIN 8.8 g/dL (14.0-18.0); LYMPHOCYTES # (AUTO) 0.3 K/uL (1.0-5.5); LYMPHOCYTES % (AUTO) 1.7 % (20.5-51.5); MEAN CORPUSCULAR HEMOGLOBIN 32 pg (27-31); MEAN CORPUSCULAR HGB CONC 33 % (32-36); MEAN CORPUSCULAR VOLUME 97 fL (79.0-98.0); MONOCYTES # (AUTO) 0.9 K/uL (0.0-1.0); MONOCYTES % (AUTO) 4.9 % (1.7-9.3); NEUTROPHILS # (AUTO) 16.6 K/uL (1.8-7.7); PLATELET COUNT (AUTO) 73 K/uL (130-430); RED BLOOD CELL COUNT(AUTO) 2.78 MIL/uL (4.2-6.2); RED CELL DISTRIBUTION WIDTH 17.3 % (9.0-15.0); WHITE BLOOD COUNT (AUTO) 17.8 K/uL (4.8-10.8)
[2022-03-08 08:33] LABS: NEUTROPHILS % (AUTO) 93.2 % (40.0-70.0)
[2022-03-08] MEDS ORDERED: POLYETHYLENE GLYCOL 3350, 17 GM/ POWD.PACK PO SCH (09:00)
[2022-03-08] MEDS ORDERED: POLYETHYLENE GLYCOL 3350, 17 GM/ POWD.PACK PO PRN (10:00)
[2022-03-08] MEDS: HYDROcodone/ACETAMIN 5-325 MG TAB (NORCO/ VICODIN) PO PRN (11:38)
[2022-03-08] MEDS ORDERED: COMMUNICATION ORDER XX ONE (17:45)
[2022-03-08] MEDS: DILTIAZEM HCL 30 MG TABLET PO SCH (20:06)
[2022-03-08] MEDS: TEMAZEPAM 15 MG CAPSULE PO PRN (20:07)
[2022-03-08 20:08] LABS: HEMATOCRIT 26.2 % (36-54); HEMOGLOBIN 8.4 g/dL (14.0-18.0)
[2022-03-09] VITALS (40 sets, daily range): BP systolic 88–129
[2022-03-09] MEDS: BISACODYL 10 MG/SUPPOSITORY RC PRN (00:04)
[2022-03-09] MEDS: HYDROcodone/ACETAMIN 5-325 MG TAB (NORCO/ VICODIN) PO PRN (00:10)
[2022-03-09] MEDS: IPRATROPIUM/ALBUTEROL SULFATE 3 ML AMPUL.NEB (DUONEB) INH SCH ×5 (01:00→19:31)
[2022-03-09] MEDS: MORPHINE 2 MG/ML INJ. SYRINGE IVP PRN (02:09)
[2022-03-09] MEDS ORDERED: ROCURONIUM BROMIDE 10 MG/ML (ZEMURON) IV ONE (04:30)
[2022-03-09] MEDS ORDERED: ETOMIDATE 20 MG/ 10 ML VIAL (AMIDATE) IVP ONE (04:30)
[2022-03-09] MEDS ORDERED: PROPOFOL DRIP 100 ML IV ONE (04:39)
[2022-03-09] MEDS: PIPERACILLIN/TAZO 3.375/DEX-IS 50 ML IV SCH (05:50)
[2022-03-09 05:56] LABS: BASOPHILS # (AUTO) 0.1 K/uL (0.0-0.2); BASOPHILS % (AUTO) 0.3 % (0.0-2.0); EOSINOPHILS % (AUTO) 0.1 % (0.0-4.0); HEMATOCRIT 28.2 % (36-54); HEMOGLOBIN 9.1 g/dL (14.0-18.0); LYMPHOCYTES # (AUTO) 0.8 K/uL (1.0-5.5); LYMPHOCYTES % (AUTO) 5.1 % (20.5-51.5); MEAN CORPUSCULAR HEMOGLOBIN 32 pg (27-31); MEAN CORPUSCULAR HGB CONC 32 % (32-36); MEAN CORPUSCULAR VOLUME 99 fL (79.0-98.0); MONOCYTES # (AUTO) 0.9 K/uL (0.0-1.0); MONOCYTES % (AUTO) 5.9 % (1.7-9.3); NEUTROPHILS # (AUTO) 13.8 K/uL (1.8-7.7); NEUTROPHILS % (AUTO) 88.6 % (40.0-70.0); PLATELET COUNT (AUTO) 77 K/uL (130-430); RED BLOOD CELL COUNT(AUTO) 2.85 MIL/uL (4.2-6.2); RED CELL DISTRIBUTION WIDTH 17.4 % (9.0-15.0); WHITE BLOOD COUNT (AUTO) 15.6 K/uL (4.8-10.8)
[2022-03-09] MEDS ORDERED: ROCURONIUM BROMIDE 10 MG/ML (ZEMURON) ONE (06:00)
[2022-03-09] MEDS ORDERED: ETOMIDATE 20 MG/ 10 ML VIAL (AMIDATE) ONE (06:00)
[2022-03-09 06:13] LABS: ALANINE AMINOTRANSFERASE 47 U/L (12-78); ALBUMIN 2.6 g/dL (3.4-4.8); ANION GAP 5 (5-15); ASPARTATE AMINOTRANSFERASE 42 U/L (10-37); CALCIUM 8.8 mg/dL (8.4-11.0); CHLORIDE 107 mmol/L (98-107); CREATININE 0.46 mg/dL (0.55-1.30); GLUCOSE 133 mg/dL (70-99); TOTAL BILIRUBIN 1.3 mg/dL (0.0-1.0); UREA NITROGEN, BLOOD 20 mg/dL (8-21)
[2022-03-09] MEDS: NOREPINEPHRINE BITARTRATE 32 MG in NS 218 ML IV PRN (06:54)
[2022-03-09] MEDS: PANTOPRAZOLE SODIUM 40 MG/VIAL (PROTONIX) IVP SCH ×2 (08:27→21:17)
[2022-03-09] MEDS: DILTIAZEM HCL 30 MG TABLET PO SCH ×3 (08:28→18:51)
[2022-03-09] MEDS: D5NS 1,000 ML IV SCH (09:19)
[2022-03-09] MEDS ORDERED: DILTIAZEM HCL 30 MG TABLET PO SCH (09:54)
[2022-03-09] MEDS: DAPTOmycin 400 MG in NS 50 ML IV SCH (13:50)
[2022-03-09] MEDS: PROPOFOL DRIP 100 ML IV PRN (13:52)
[2022-03-09] MEDS: CEFEPIME 1 GM in D5W 50 ML IV SCH (21:19)
[2022-03-10] VITALS (39 sets, daily range): BP systolic 90–117
[2022-03-10] MEDS: NOREPINEPHRINE BITARTRATE 32 MG in NS 218 ML IV PRN (00:02)
[2022-03-10] MEDS: DILTIAZEM HCL 30 MG TABLET PO SCH ×5 (00:03→23:56)
[2022-03-10] MEDS: IPRATROPIUM/ALBUTEROL SULFATE 3 ML AMPUL.NEB (DUONEB) INH SCH ×4 (00:28→19:30)
[2022-03-10] MEDS: D5NS 1,000 ML IV SCH ×2 (01:13→13:25)
[2022-03-10] MEDS: ACETAMINOPHEN 325 MG TABLET PO PRN ×3 (02:43→23:24)
[2022-03-10 06:47] LABS: BASOPHILS % (AUTO) 0.2 % (0.0-2.0); EOSINOPHILS % (AUTO) 0.1 % (0.0-4.0); HEMATOCRIT 22.4 % (36-54); HEMOGLOBIN 7.4 g/dL (14.0-18.0); LYMPHOCYTES # (AUTO) 0.5 K/uL (1.0-5.5); LYMPHOCYTES % (AUTO) 3.4 % (20.5-51.5); MEAN CORPUSCULAR HEMOGLOBIN 32 pg (27-31); MEAN CORPUSCULAR HGB CONC 33 % (32-36); MEAN CORPUSCULAR VOLUME 98 fL (79.0-98.0); MONOCYTES # (AUTO) 0.8 K/uL (0.0-1.0); MONOCYTES % (AUTO) 5.7 % (1.7-9.3); NEUTROPHILS # (AUTO) 12.1 K/uL (1.8-7.7); NEUTROPHILS % (AUTO) 90.6 % (40.0-70.0); PLATELET COUNT (AUTO) 56 K/uL (130-430); RED BLOOD CELL COUNT(AUTO) 2.29 MIL/uL (4.2-6.2); RED CELL DISTRIBUTION WIDTH 17.8 % (9.0-15.0); WHITE BLOOD COUNT (AUTO) 13.4 K/uL (4.8-10.8)
[2022-03-10 07:45] LABS: ALANINE AMINOTRANSFERASE 32 U/L (12-78); ANION GAP 7 (5-15); ASPARTATE AMINOTRANSFERASE 27 U/L (10-37); CALCIUM 8.7 mg/dL (8.4-11.0); CHLORIDE 109 mmol/L (98-107); CREATININE 0.51 mg/dL (0.55-1.30); GLUCOSE 155 mg/dL (70-99); TOTAL BILIRUBIN 1.3 mg/dL (0.0-1.0); UREA NITROGEN, BLOOD 21 mg/dL (8-21)
[2022-03-10] MEDS: CEFEPIME 1 GM in D5W 50 ML IV SCH ×2 (08:18→21:06)
[2022-03-10] MEDS: PANTOPRAZOLE SODIUM 40 MG/VIAL (PROTONIX) IVP SCH ×2 (08:19→21:06)
[2022-03-10] MEDS ORDERED: KCL 40 mEq in 100 mL (PREMIX) 100 ML IV PRN (11:00)
[2022-03-10] MEDS ORDERED: POTASSIUM CHLORIDE 40 MEQ in NS 250 ML IV ONE (12:30)
[2022-03-10] MEDS: DAPTOmycin 400 MG in NS 50 ML IV SCH (13:26)
[2022-03-10] MEDS: PROPOFOL DRIP 100 ML IV PRN ×2 (13:29→20:06)
[2022-03-11] VITALS (40 sets, daily range): BP systolic 90–135
[2022-03-11] MEDS: IPRATROPIUM/ALBUTEROL SULFATE 3 ML AMPUL.NEB (DUONEB) INH SCH ×4 (01:15→19:35)
[2022-03-11] MEDS: D5NS 1,000 ML IV SCH ×2 (02:13→14:15)
[2022-03-11 08:04] LABS: BASOPHILS % (AUTO) 0.2 % (0.0-2.0); EOSINOPHILS # (AUTO) 0.1 K/uL (0.0-0.4); EOSINOPHILS % (AUTO) 0.6 % (0.0-4.0); LYMPHOCYTES # (AUTO) 0.4 K/uL (1.0-5.5); LYMPHOCYTES % (AUTO) 4.1 % (20.5-51.5); MEAN CORPUSCULAR HEMOGLOBIN 32 pg (27-31); MEAN CORPUSCULAR HGB CONC 33 % (32-36); MEAN CORPUSCULAR VOLUME 98 fL (79.0-98.0); MONOCYTES # (AUTO) 0.3 K/uL (0.0-1.0); NEUTROPHILS % (AUTO) 92.1 % (40.0-70.0); PLATELET COUNT (AUTO) 51 K/uL (130-430); RED BLOOD CELL COUNT(AUTO) 2.13 MIL/uL (4.2-6.2); RED CELL DISTRIBUTION WIDTH 17.8 % (9.0-15.0); WHITE BLOOD COUNT (AUTO) 9.8 K/uL (4.8-10.8)
[2022-03-11] MEDS: DILTIAZEM HCL 30 MG TABLET PO SCH ×4 (08:09→23:58)
[2022-03-11] MEDS: CEFEPIME 1 GM in D5W 50 ML IV SCH (08:10)
[2022-03-11] MEDS: PANTOPRAZOLE SODIUM 40 MG/VIAL (PROTONIX) IVP SCH ×2 (08:10→20:53)
[2022-03-11 08:25] LABS: ALANINE AMINOTRANSFERASE 26 U/L (12-78); ALBUMIN 1.8 g/dL (3.4-4.8); ANION GAP 8 (5-15); ASPARTATE AMINOTRANSFERASE 22 U/L (10-37); CALCIUM 8.6 mg/dL (8.4-11.0); CHLORIDE 110 mmol/L (98-107); CREATININE 0.46 mg/dL (0.55-1.30); GLUCOSE 134 mg/dL (70-99); TOTAL BILIRUBIN 1.2 mg/dL (0.0-1.0); UREA NITROGEN, BLOOD 26 mg/dL (8-21)
[2022-03-11 08:33] LABS: HEMOGLOBIN 6.9 g/dL (14.0-18.0)
[2022-03-11 08:34] LABS: HEMATOCRIT 20.9 % (36-54)
[2022-03-11] MEDS: POTASSIUM CHLORIDE 40 MEQ in NS 250 ML IV PRN (09:12)
[2022-03-11] MEDS: PROPOFOL DRIP 100 ML IV PRN (12:25)
[2022-03-11] MEDS: AMPICILLIN SODIUM 2 GM in NS 100 ML IV SCH ×3 (12:56→22:40)
[2022-03-11] MEDS: DAPTOmycin 400 MG in NS 50 ML IV SCH (12:58)
[2022-03-12] VITALS (47 sets, daily range): BP systolic 85–116
[2022-03-12] MEDS: IPRATROPIUM/ALBUTEROL SULFATE 3 ML AMPUL.NEB (DUONEB) INH SCH ×3 (01:00→19:50)
[2022-03-12] MEDS: D5NS 1,000 ML IV SCH ×2 (03:12→18:16)
[2022-03-12] MEDS: AMPICILLIN SODIUM 2 GM in NS 100 ML IV SCH ×4 (04:17→22:20)
[2022-03-12] MEDS: PROPOFOL DRIP 100 ML IV PRN ×2 (04:17→14:44)
[2022-03-12] MEDS: DILTIAZEM HCL 30 MG TABLET PO SCH ×3 (05:30→18:17)
[2022-03-12] MEDS ORDERED: DILTIAZEM HCL 30 MG TABLET ONE (05:40)
[2022-03-12 06:19] LABS: BASOPHILS % (AUTO) 0.4 % (0.0-2.0); EOSINOPHILS # (AUTO) 0.1 K/uL (0.0-0.4); EOSINOPHILS % (AUTO) 0.6 % (0.0-4.0); HEMATOCRIT 27.2 % (36-54); HEMOGLOBIN 9.1 g/dL (14.0-18.0); LYMPHOCYTES # (AUTO) 0.4 K/uL (1.0-5.5); LYMPHOCYTES % (AUTO) 4.9 % (20.5-51.5); MEAN CORPUSCULAR HEMOGLOBIN 33 pg (27-31); MEAN CORPUSCULAR HGB CONC 34 % (32-36); MEAN CORPUSCULAR VOLUME 98 fL (79.0-98.0); MONOCYTES # (AUTO) 0.3 K/uL (0.0-1.0); MONOCYTES % (AUTO) 4.1 % (1.7-9.3); NEUTROPHILS # (AUTO) 7.7 K/uL (1.8-7.7); PLATELET COUNT (AUTO) 59 K/uL (130-430); RED BLOOD CELL COUNT(AUTO) 2.78 MIL/uL (4.2-6.2); RED CELL DISTRIBUTION WIDTH 16.8 % (9.0-15.0); WHITE BLOOD COUNT (AUTO) 8.5 K/uL (4.8-10.8)
[2022-03-12 06:27] LABS: ANION GAP 7 (5-15); CALCIUM 8.4 mg/dL (8.4-11.0); CHLORIDE 111 mmol/L (98-107); CREATININE 0.53 mg/dL (0.55-1.30); GLUCOSE 88 mg/dL (70-99); UREA NITROGEN, BLOOD 24 mg/dL (8-21)
[2022-03-12] MEDS: PANTOPRAZOLE SODIUM 40 MG/VIAL (PROTONIX) IVP SCH ×2 (08:02→21:06)
[2022-03-12] MEDS: ACETAMINOPHEN 325 MG TABLET PO PRN ×2 (08:06→18:18)
[2022-03-12] MEDS: DAPTOmycin 400 MG in NS 50 ML IV SCH (14:32)
[2022-03-13] VITALS (44 sets, daily range): BP systolic 93–106
[2022-03-13] MEDS: DILTIAZEM HCL 30 MG TABLET PO SCH ×5 (00:02→23:40)
[2022-03-13] MEDS: IPRATROPIUM/ALBUTEROL SULFATE 3 ML AMPUL.NEB (DUONEB) INH SCH ×4 (00:50→20:55)
[2022-03-13] MEDS: PROPOFOL DRIP 100 ML IV PRN ×2 (04:15→13:17)
[2022-03-13] MEDS: D5NS 1,000 ML IV SCH ×3 (04:55→22:23)
[2022-03-13] MEDS: AMPICILLIN SODIUM 2 GM in NS 100 ML IV SCH ×4 (04:55→22:23)
[2022-03-13] MEDS ORDERED: DILTIAZEM HCL 30 MG TABLET ONE (06:07)
[2022-03-13 06:37] LABS: BASOPHILS % (AUTO) 0.4 % (0.0-2.0); EOSINOPHILS % (AUTO) 0.5 % (0.0-4.0); HEMATOCRIT 24.3 % (36-54); HEMOGLOBIN 8.5 g/dL (14.0-18.0); LYMPHOCYTES # (AUTO) 0.3 K/uL (1.0-5.5); LYMPHOCYTES % (AUTO) 4.7 % (20.5-51.5); MEAN CORPUSCULAR HEMOGLOBIN 33 pg (27-31); MEAN CORPUSCULAR HGB CONC 35 % (32-36); MEAN CORPUSCULAR VOLUME 95 fL (79.0-98.0); MONOCYTES # (AUTO) 0.3 K/uL (0.0-1.0); NEUTROPHILS # (AUTO) 6.8 K/uL (1.8-7.7); NEUTROPHILS % (AUTO) 90.4 % (40.0-70.0); PLATELET COUNT (AUTO) 80 K/uL (130-430); RED BLOOD CELL COUNT(AUTO) 2.57 MIL/uL (4.2-6.2); WHITE BLOOD COUNT (AUTO) 7.5 K/uL (4.8-10.8)
[2022-03-13 07:16] LABS: ALANINE AMINOTRANSFERASE 20 U/L (12-78); ALBUMIN 1.5 g/dL (3.4-4.8); ANION GAP 9 (5-15); ASPARTATE AMINOTRANSFERASE 16 U/L (10-37); CALCIUM 8.1 mg/dL (8.4-11.0); CHLORIDE 112 mmol/L (98-107); GLUCOSE 87 mg/dL (70-99); TOTAL BILIRUBIN 0.9 mg/dL (0.0-1.0); UREA NITROGEN, BLOOD 23 mg/dL (8-21)
[2022-03-13] MEDS: PANTOPRAZOLE SODIUM 40 MG/VIAL (PROTONIX) IVP SCH ×2 (09:35→21:45)
[2022-03-13] MEDS: POTASSIUM CHLORIDE 40 MEQ in NS 250 ML IV PRN (09:35)
[2022-03-14] VITALS (33 sets, daily range): BP systolic 88–105
[2022-03-14] MEDS: AMPICILLIN SODIUM 2 GM in NS 100 ML IV SCH ×4 (05:19→23:50)
[2022-03-14] MEDS: DILTIAZEM HCL 30 MG TABLET PO SCH ×3 (06:00→17:54)
[2022-03-14 06:05] LABS: BASOPHILS % (AUTO) 0.3 % (0.0-2.0); EOSINOPHILS # (AUTO) 0.1 K/uL (0.0-0.4); EOSINOPHILS % (AUTO) 1.1 % (0.0-4.0); HEMATOCRIT 24.9 % (36-54); HEMOGLOBIN 8.5 g/dL (14.0-18.0); LYMPHOCYTES # (AUTO) 0.4 K/uL (1.0-5.5); LYMPHOCYTES % (AUTO) 6.1 % (20.5-51.5); MEAN CORPUSCULAR HEMOGLOBIN 33 pg (27-31); MEAN CORPUSCULAR HGB CONC 34 % (32-36); MEAN CORPUSCULAR VOLUME 96 fL (79.0-98.0); MONOCYTES # (AUTO) 0.3 K/uL (0.0-1.0); MONOCYTES % (AUTO) 5.7 % (1.7-9.3); NEUTROPHILS % (AUTO) 86.8 % (40.0-70.0); PLATELET COUNT (AUTO) 100 K/uL (130-430); RED BLOOD CELL COUNT(AUTO) 2.59 MIL/uL (4.2-6.2); WHITE BLOOD COUNT (AUTO) 5.8 K/uL (4.8-10.8)
[2022-03-14 06:26] LABS: ANION GAP 9 (5-15); CALCIUM 8.1 mg/dL (8.4-11.0); CHLORIDE 113 mmol/L (98-107); CREATININE 0.46 mg/dL (0.55-1.30); GLUCOSE 113 mg/dL (70-99); UREA NITROGEN, BLOOD 25 mg/dL (8-21)
[2022-03-14] MEDS: IPRATROPIUM/ALBUTEROL SULFATE 3 ML AMPUL.NEB (DUONEB) INH SCH ×3 (07:27→20:05)
[2022-03-14] MEDS: PANTOPRAZOLE SODIUM 40 MG/VIAL (PROTONIX) IVP SCH ×2 (08:55→21:08)
[2022-03-14] MEDS ORDERED: POTASSIUM CHLORIDE 20 MEQ TAB.PRT.SR PO ONE (12:00)
[2022-03-14] MEDS: MORPHINE 2 MG/ML INJ. SYRINGE IVP PRN (12:06)
[2022-03-14] MEDS: PROPOFOL DRIP 100 ML IV PRN (16:12)
[2022-03-14] MEDS: D5NS 1,000 ML IV SCH (17:43)
[2022-03-15] VITALS (30 sets, daily range): BP systolic 91–116
[2022-03-15] MEDS: DILTIAZEM HCL 30 MG TABLET PO SCH ×4 (00:36→17:35)
[2022-03-15] MEDS: IPRATROPIUM/ALBUTEROL SULFATE 3 ML AMPUL.NEB (DUONEB) INH SCH ×4 (01:10→19:40)
[2022-03-15] MEDS: AMPICILLIN SODIUM 2 GM in NS 100 ML IV SCH ×4 (05:21→22:10)
[2022-03-15] MEDS: D5NS 1,000 ML IV SCH ×3 (06:13→17:35)
[2022-03-15 06:15] LABS: BASOPHILS % (AUTO) 0.2 % (0.0-2.0); EOSINOPHILS # (AUTO) 0.1 K/uL (0.0-0.4); EOSINOPHILS % (AUTO) 1.6 % (0.0-4.0); HEMATOCRIT 24.4 % (36-54); HEMOGLOBIN 8.1 g/dL (14.0-18.0); LYMPHOCYTES # (AUTO) 0.4 K/uL (1.0-5.5); LYMPHOCYTES % (AUTO) 8.3 % (20.5-51.5); MEAN CORPUSCULAR HEMOGLOBIN 33 pg (27-31); MEAN CORPUSCULAR HGB CONC 33 % (32-36); MEAN CORPUSCULAR VOLUME 98 fL (79.0-98.0); MONOCYTES # (AUTO) 0.3 K/uL (0.0-1.0); MONOCYTES % (AUTO) 6.3 % (1.7-9.3); NEUTROPHILS # (AUTO) 4.2 K/uL (1.8-7.7); NEUTROPHILS % (AUTO) 83.6 % (40.0-70.0); PLATELET COUNT (AUTO) 153 K/uL (130-430); RED CELL DISTRIBUTION WIDTH 17.3 % (9.0-15.0)
[2022-03-15] MEDS: PROPOFOL DRIP 100 ML IV PRN ×2 (07:00→15:46)
[2022-03-15 07:14] LABS: ALANINE AMINOTRANSFERASE 16 U/L (12-78); ALBUMIN 1.4 g/dL (3.4-4.8); ANION GAP 9 (5-15); ASPARTATE AMINOTRANSFERASE 21 U/L (10-37); CALCIUM 8.2 mg/dL (8.4-11.0); CHLORIDE 114 mmol/L (98-107); GLUCOSE 116 mg/dL (70-99); TOTAL BILIRUBIN 0.5 mg/dL (0.0-1.0); UREA NITROGEN, BLOOD 22 mg/dL (8-21)
[2022-03-15] MEDS: PANTOPRAZOLE SODIUM 40 MG/VIAL (PROTONIX) IVP SCH ×2 (08:17→20:03)
[2022-03-15] MEDS: NOREPINEPHRINE BITARTRATE 32 MG in NS 218 ML IV PRN (08:22)
[2022-03-15] MEDS: POTASSIUM CHLORIDE 40 MEQ in NS 250 ML IV PRN (09:47)
[2022-03-15] MEDS: MORPHINE 2 MG/ML INJ. SYRINGE IVP PRN (11:49)
[2022-03-15] MEDS ORDERED: IPRATROPIUM BROM 0.5 MG/2.5 ML VIAL.NEB (ATROVENT) INH ONE (19:41)
[2022-03-15] MEDS ORDERED: ALBUTEROL SULFATE 0.083% 2.5 MG/3 ML VIAL.NEB INH ONE (19:42)
[2022-03-16] VITALS (33 sets, daily range): BP systolic 93–162
[2022-03-16] MEDS: DILTIAZEM HCL 30 MG TABLET PO SCH ×5 (00:38→17:08)
[2022-03-16] MEDS ORDERED: ALBUTEROL SULFATE 0.083% 2.5 MG/3 ML VIAL.NEB INH ONE (01:29)
[2022-03-16] MEDS ORDERED: IPRATROPIUM BROM 0.5 MG/2.5 ML VIAL.NEB (ATROVENT) INH ONE (01:29)
[2022-03-16] MEDS: PROPOFOL DRIP 100 ML IV PRN ×3 (01:35→18:35)
[2022-03-16] MEDS: D5NS 1,000 ML IV SCH ×2 (03:47→17:10)
[2022-03-16] MEDS: AMPICILLIN SODIUM 2 GM in NS 100 ML IV SCH ×4 (04:06→21:48)
[2022-03-16] MEDS: PANTOPRAZOLE SODIUM 40 MG/VIAL (PROTONIX) IVP SCH ×2 (08:19→21:48)
[2022-03-16 08:34] LABS: BASOPHILS % (AUTO) 0.5 % (0.0-2.0); EOSINOPHILS # (AUTO) 0.1 K/uL (0.0-0.4); EOSINOPHILS % (AUTO) 1.9 % (0.0-4.0); HEMATOCRIT 24.7 % (36-54); HEMOGLOBIN 8.2 g/dL (14.0-18.0); LYMPHOCYTES # (AUTO) 0.5 K/uL (1.0-5.5); LYMPHOCYTES % (AUTO) 9.3 % (20.5-51.5); MEAN CORPUSCULAR HEMOGLOBIN 32 pg (27-31); MEAN CORPUSCULAR HGB CONC 33 % (32-36); MEAN CORPUSCULAR VOLUME 96 fL (79.0-98.0); MONOCYTES # (AUTO) 0.4 K/uL (0.0-1.0); MONOCYTES % (AUTO) 6.6 % (1.7-9.3); NEUTROPHILS # (AUTO) 4.5 K/uL (1.8-7.7); NEUTROPHILS % (AUTO) 81.7 % (40.0-70.0); PLATELET COUNT (AUTO) 219 K/uL (130-430); RED BLOOD CELL COUNT(AUTO) 2.59 MIL/uL (4.2-6.2); RED CELL DISTRIBUTION WIDTH 17.4 % (9.0-15.0); WHITE BLOOD COUNT (AUTO) 5.5 K/uL (4.8-10.8)
[2022-03-16 09:40] LABS: CALCIUM 8.5 mg/dL (8.4-11.0); CREATININE 0.31 mg/dL (0.55-1.30); GLUCOSE 120 mg/dL (70-99); UREA NITROGEN, BLOOD 18 mg/dL (8-21)
[2022-03-16 10:23] LABS: ANION GAP 10 (5-15); CHLORIDE 114 mmol/L (98-107)
[2022-03-16] MEDS: ALBUTEROL SULFATE 0.083% 2.5 MG/3 ML VIAL.NEB INH SCH (19:53)
[2022-03-16] MEDS: IPRATROPIUM BROM 0.5 MG/2.5 ML VIAL.NEB (ATROVENT) INH SCH (19:53)
[2022-03-17] VITALS (34 sets, daily range): BP systolic 88–151
[2022-03-17] MEDS: DILTIAZEM HCL 30 MG TABLET PO SCH ×5 (01:17→23:42)
[2022-03-17] MEDS: AMPICILLIN SODIUM 2 GM in NS 100 ML IV SCH (06:46)
[2022-03-17] MEDS: IPRATROPIUM BROM 0.5 MG/2.5 ML VIAL.NEB (ATROVENT) INH SCH ×3 (07:13→19:36)
[2022-03-17] MEDS: ALBUTEROL SULFATE 0.083% 2.5 MG/3 ML VIAL.NEB INH SCH ×3 (07:13→19:36)
[2022-03-17 07:53] LABS: BASOPHILS % (AUTO) 0.4 % (0.0-2.0); EOSINOPHILS # (AUTO) 0.1 K/uL (0.0-0.4); EOSINOPHILS % (AUTO) 1.5 % (0.0-4.0); HEMOGLOBIN 8.2 g/dL (14.0-18.0); LYMPHOCYTES # (AUTO) 0.5 K/uL (1.0-5.5); LYMPHOCYTES % (AUTO) 10.2 % (20.5-51.5); MEAN CORPUSCULAR HEMOGLOBIN 32 pg (27-31); MEAN CORPUSCULAR HGB CONC 33 % (32-36); MONOCYTES # (AUTO) 0.4 K/uL (0.0-1.0); MONOCYTES % (AUTO) 7.6 % (1.7-9.3); NEUTROPHILS # (AUTO) 4.1 K/uL (1.8-7.7); NEUTROPHILS % (AUTO) 80.3 % (40.0-70.0); PLATELET COUNT (AUTO) 246 K/uL (130-430); RED BLOOD CELL COUNT(AUTO) 2.53 MIL/uL (4.2-6.2); RED CELL DISTRIBUTION WIDTH 17.9 % (9.0-15.0); WHITE BLOOD COUNT (AUTO) 5.1 K/uL (4.8-10.8)
[2022-03-17 08:03] LABS: ANION GAP 9 (5-15); CALCIUM 8.2 mg/dL (8.4-11.0); CHLORIDE 114 mmol/L (98-107); CREATININE 0.38 mg/dL (0.55-1.30); GLUCOSE 104 mg/dL (70-99); UREA NITROGEN, BLOOD 18 mg/dL (8-21)
[2022-03-17 08:15] LABS: MEAN CORPUSCULAR VOLUME 99 fL (79.0-98.0)
[2022-03-17] MEDS: PANTOPRAZOLE SODIUM 40 MG/VIAL (PROTONIX) IVP SCH ×2 (08:17→21:20)
[2022-03-17] MEDS: D5NS 1,000 ML IV SCH ×2 (08:28→21:19)
[2022-03-17] MEDS: POTASSIUM CHLORIDE 40 MEQ in NS 250 ML IV PRN (09:55)
[2022-03-17] MEDS ORDERED: NALOXONE HCL 0.4 MG/ML AMP (NARCAN) IVP PRN (11:15)
[2022-03-17] MEDS ORDERED: methylPREDNISolone SOD SUCC/PF 62.5 MG/ML VIAL IVP ONE (11:45)
[2022-03-17] MEDS: MEROPENEM 1 GM in NS 100 ML IV SCH ×2 (14:05→21:28)
[2022-03-17] MEDS: FUROSEMIDE 20 MG TABLET NG SCH ×2 (14:23→21:43)
[2022-03-17] MEDS: PROPOFOL DRIP 100 ML IV PRN ×3 (15:02→22:17)
[2022-03-17] MEDS ORDERED: DIGOXIN 0.5 MG/2 ML AMP IVP ONE (16:15)
[2022-03-17] MEDS: methylPREDNISolone SOD SUCC/PF 62.5 MG/ML VIAL IVP SCH (21:22)
[2022-03-18] VITALS (34 sets, daily range): BP systolic 91–157
[2022-03-18] MEDS: ALBUTEROL SULFATE 0.083% 2.5 MG/3 ML VIAL.NEB INH SCH ×4 (01:24→20:08)
[2022-03-18] MEDS: IPRATROPIUM BROM 0.5 MG/2.5 ML VIAL.NEB (ATROVENT) INH SCH ×4 (01:24→20:08)
[2022-03-18] MEDS: MEROPENEM 1 GM in NS 100 ML IV SCH ×3 (05:22→22:05)
[2022-03-18] MEDS: FUROSEMIDE 20 MG TABLET NG SCH ×2 (05:24→14:43)
[2022-03-18] MEDS: DILTIAZEM HCL 30 MG TABLET PO SCH ×4 (05:25→23:00)
[2022-03-18] MEDS: PROPOFOL DRIP 100 ML IV PRN ×2 (07:44→15:31)
[2022-03-18] MEDS: PANTOPRAZOLE SODIUM 40 MG/VIAL (PROTONIX) IVP SCH ×2 (09:06→22:00)
[2022-03-18] MEDS: methylPREDNISolone SOD SUCC/PF 62.5 MG/ML VIAL IVP SCH ×2 (09:07→22:00)
[2022-03-18 09:09] LABS: BASOPHILS % (AUTO) 0.4 % (0.0-2.0); EOSINOPHILS % (AUTO) 0.1 % (0.0-4.0); HEMOGLOBIN 7.9 g/dL (14.0-18.0); LYMPHOCYTES # (AUTO) 0.3 K/uL (1.0-5.5); LYMPHOCYTES % (AUTO) 6.2 % (20.5-51.5); MEAN CORPUSCULAR HEMOGLOBIN 32 pg (27-31); MEAN CORPUSCULAR HGB CONC 33 % (32-36); MONOCYTES # (AUTO) 0.2 K/uL (0.0-1.0); MONOCYTES % (AUTO) 3.6 % (1.7-9.3); NEUTROPHILS # (AUTO) 4.1 K/uL (1.8-7.7); NEUTROPHILS % (AUTO) 89.7 % (40.0-70.0); PLATELET COUNT (AUTO) 303 K/uL (130-430); RED BLOOD CELL COUNT(AUTO) 2.46 MIL/uL (4.2-6.2); RED CELL DISTRIBUTION WIDTH 17.8 % (9.0-15.0); WHITE BLOOD COUNT (AUTO) 4.5 K/uL (4.8-10.8)
[2022-03-18 09:34] LABS: MEAN CORPUSCULAR VOLUME 97 fL (79.0-98.0)
[2022-03-18] MEDS: D5NS 1,000 ML IV SCH (10:29)
[2022-03-18] MEDS ORDERED: NOREPINEPHRINE 4 MG/4 ML VIAL IV ONE (11:09)
[2022-03-18] MEDS: NOREPINEPHRINE BITARTRATE 32 MG in NS 218 ML IV PRN (11:14)
[2022-03-18 11:35] LABS: ANION GAP 9 (5-15); CALCIUM 8.2 mg/dL (8.4-11.0); CHLORIDE 115 mmol/L (98-107); CREATININE 0.46 mg/dL (0.55-1.30); GLUCOSE 189 mg/dL (70-99); UREA NITROGEN, BLOOD 24 mg/dL (8-21)
[2022-03-18] MEDS: ALBUMIN HUMAN 25% 50 ML IV SCH ×4 (12:33→22:56)
[2022-03-18] MEDS ORDERED: FUROSEMIDE 20 MG/2 ML VIAL ONE (20:20)
[2022-03-18] MEDS ORDERED: FUROSEMIDE 40 MG/4 ML VIAL ONE (20:20)
[2022-03-18] MEDS: FUROSEMIDE 100 MG in D5W 90 ML IV SCH (20:26)
[2022-03-19] VITALS (30 sets, daily range): BP systolic 88–142
[2022-03-19] MEDS: ALBUTEROL SULFATE 0.083% 2.5 MG/3 ML VIAL.NEB INH SCH ×3 (02:00→20:09)
[2022-03-19] MEDS: IPRATROPIUM BROM 0.5 MG/2.5 ML VIAL.NEB (ATROVENT) INH SCH ×3 (02:00→20:09)
[2022-03-19] MEDS: DILTIAZEM HCL 30 MG TABLET PO SCH ×3 (06:00→17:29)
[2022-03-19 06:36] LABS: BASOPHILS % (AUTO) 0.1 % (0.0-2.0); HEMOGLOBIN 7.1 g/dL (14.0-18.0); LYMPHOCYTES # (AUTO) 0.2 K/uL (1.0-5.5); LYMPHOCYTES % (AUTO) 5.5 % (20.5-51.5); MEAN CORPUSCULAR HEMOGLOBIN 32 pg (27-31); MEAN CORPUSCULAR HGB CONC 34 % (32-36); MEAN CORPUSCULAR VOLUME 94 fL (79.0-98.0); MONOCYTES # (AUTO) 0.1 K/uL (0.0-1.0); MONOCYTES % (AUTO) 3.4 % (1.7-9.3); NEUTROPHILS # (AUTO) 3.9 K/uL (1.8-7.7); PLATELET COUNT (AUTO) 298 K/uL (130-430); RED BLOOD CELL COUNT(AUTO) 2.22 MIL/uL (4.2-6.2); RED CELL DISTRIBUTION WIDTH 17.6 % (9.0-15.0); WHITE BLOOD COUNT (AUTO) 4.3 K/uL (4.8-10.8)
[2022-03-19] MEDS: MEROPENEM 1 GM in NS 100 ML IV SCH ×3 (06:40→22:56)
[2022-03-19 06:50] LABS: ANION GAP 9 (5-15); CHLORIDE 113 mmol/L (98-107); CREATININE 0.38 mg/dL (0.55-1.30); GLUCOSE 150 mg/dL (70-99); UREA NITROGEN, BLOOD 28 mg/dL (8-21)
[2022-03-19] MEDS: PROPOFOL DRIP 100 ML IV PRN ×2 (07:05→14:15)
[2022-03-19 07:25] LABS: HEMATOCRIT 20.9 % (36-54)
[2022-03-19] MEDS: PANTOPRAZOLE SODIUM 40 MG/VIAL (PROTONIX) IVP SCH ×2 (08:22→20:40)
[2022-03-19] MEDS: methylPREDNISolone SOD SUCC/PF 62.5 MG/ML VIAL IVP SCH ×2 (08:23→20:41)
[2022-03-19 11:24] LABS: DIGOXIN 0.9 ng/mL (0.80-2.00)
[2022-03-19] MEDS: POTASSIUM CHLORIDE 40 MEQ in NS 250 ML IV PRN (11:35)
[2022-03-20] VITALS (32 sets, daily range): BP systolic 84–115
[2022-03-20] MEDS: DILTIAZEM HCL 30 MG TABLET PO SCH ×5 (00:20→23:52)
[2022-03-20] MEDS: ALBUTEROL SULFATE 0.083% 2.5 MG/3 ML VIAL.NEB INH SCH ×4 (01:12→19:21)
[2022-03-20] MEDS: IPRATROPIUM BROM 0.5 MG/2.5 ML VIAL.NEB (ATROVENT) INH SCH ×4 (01:12→19:21)
[2022-03-20 06:12] LABS: HEMATOCRIT 23.9 % (36-54); HEMOGLOBIN 7.8 g/dL (14.0-18.0); LYMPHOCYTES # (AUTO) 0.2 K/uL (1.0-5.5); MEAN CORPUSCULAR HEMOGLOBIN 32 pg (27-31); MEAN CORPUSCULAR HGB CONC 33 % (32-36); MEAN CORPUSCULAR VOLUME 96 fL (79.0-98.0); MONOCYTES # (AUTO) 0.2 K/uL (0.0-1.0); MONOCYTES % (AUTO) 3.6 % (1.7-9.3); NEUTROPHILS # (AUTO) 4.5 K/uL (1.8-7.7); NEUTROPHILS % (AUTO) 91.4 % (40.0-70.0); PLATELET COUNT (AUTO) 324 K/uL (130-430); RED BLOOD CELL COUNT(AUTO) 2.48 MIL/uL (4.2-6.2); RED CELL DISTRIBUTION WIDTH 17.6 % (9.0-15.0); WHITE BLOOD COUNT (AUTO) 4.9 K/uL (4.8-10.8)
[2022-03-20 06:19] LABS: ANION GAP 9 (5-15); CHLORIDE 112 mmol/L (98-107); CREATININE 0.48 mg/dL (0.55-1.30); GLUCOSE 134 mg/dL (70-99); UREA NITROGEN, BLOOD 25 mg/dL (8-21)
[2022-03-20] MEDS: MEROPENEM 1 GM in NS 100 ML IV SCH (07:19)
[2022-03-20] MEDS: PROPOFOL DRIP 100 ML IV PRN (08:09)
[2022-03-20] MEDS: PANTOPRAZOLE SODIUM 40 MG/VIAL (PROTONIX) IVP SCH ×2 (09:36→20:47)
[2022-03-20] MEDS: FUROSEMIDE 100 MG in D5W 90 ML IV SCH ×2 (09:39→20:00)
[2022-03-20] MEDS ORDERED: METHYLPREDNISOLONE SOD SUCC 40 MG/ML VIAL ONE (09:40)
[2022-03-20] MEDS: methylPREDNISolone SOD SUCC/PF 62.5 MG/ML VIAL IVP SCH (09:40)
[2022-03-20] MEDS: CEFEPIME 2 GM in D5W 100 ML IV SCH (20:47)
[2022-03-20] MEDS: METHYLPREDNISOLONE SOD SUCC 40 MG/ML VIAL IVP SCH (20:48)
[2022-03-21] VITALS (34 sets, daily range): BP systolic 82–99
[2022-03-21] MEDS: ALBUTEROL SULFATE 0.083% 2.5 MG/3 ML VIAL.NEB INH SCH ×3 (01:03→14:12)
[2022-03-21] MEDS: IPRATROPIUM BROM 0.5 MG/2.5 ML VIAL.NEB (ATROVENT) INH SCH ×3 (01:03→14:12)
[2022-03-21] MEDS ORDERED: KCL 20 mEq in 100 mL (PREMIX) 200 ML IV ONE (03:03)
[2022-03-21 06:14] LABS: BASOPHILS % (AUTO) 0.1 % (0.0-2.0); HEMATOCRIT 25.6 % (36-54); HEMOGLOBIN 8.4 g/dL (14.0-18.0); LYMPHOCYTES # (AUTO) 0.2 K/uL (1.0-5.5); LYMPHOCYTES % (AUTO) 3.9 % (20.5-51.5); MEAN CORPUSCULAR HEMOGLOBIN 32 pg (27-31); MEAN CORPUSCULAR HGB CONC 33 % (32-36); MEAN CORPUSCULAR VOLUME 96 fL (79.0-98.0); MONOCYTES # (AUTO) 0.4 K/uL (0.0-1.0); MONOCYTES % (AUTO) 7.6 % (1.7-9.3); NEUTROPHILS # (AUTO) 5.1 K/uL (1.8-7.7); NEUTROPHILS % (AUTO) 88.4 % (40.0-70.0); PLATELET COUNT (AUTO) 309 K/uL (130-430); RED BLOOD CELL COUNT(AUTO) 2.67 MIL/uL (4.2-6.2); RED CELL DISTRIBUTION WIDTH 17.3 % (9.0-15.0); WHITE BLOOD COUNT (AUTO) 5.7 K/uL (4.8-10.8)
[2022-03-21 06:22] LABS: ANION GAP 6 (5-15); CALCIUM 8.1 mg/dL (8.4-11.0); CHLORIDE 111 mmol/L (98-107); CREATININE 0.44 mg/dL (0.55-1.30); GLUCOSE 148 mg/dL (70-99); UREA NITROGEN, BLOOD 33 mg/dL (8-21)
[2022-03-21] MEDS: DILTIAZEM HCL 30 MG TABLET PO SCH ×3 (06:39→18:15)
[2022-03-21] MEDS: METHYLPREDNISOLONE SOD SUCC 40 MG/ML VIAL IVP SCH ×2 (08:54→22:20)
[2022-03-21] MEDS: PANTOPRAZOLE SODIUM 40 MG/VIAL (PROTONIX) IVP SCH ×2 (08:54→22:22)
[2022-03-21] MEDS: CEFEPIME 2 GM in D5W 100 ML IV SCH ×2 (08:54→22:21)
[2022-03-21] MEDS ORDERED: DIGOXIN 0.5 MG/2 ML AMP IVP ONE (12:30)
[2022-03-21] MEDS: FUROSEMIDE 100 MG in D5W 90 ML IV SCH (13:10)
[2022-03-22] VITALS (29 sets, daily range): BP systolic 82–130
[2022-03-22] MEDS: DILTIAZEM HCL 30 MG TABLET PO SCH ×4 (05:48→16:55)
[2022-03-22 06:55] LABS: HEMATOCRIT 26.9 % (36-54); HEMOGLOBIN 8.8 g/dL (14.0-18.0); MEAN CORPUSCULAR HEMOGLOBIN 32 pg (27-31); MEAN CORPUSCULAR HGB CONC 33 % (32-36); MEAN CORPUSCULAR VOLUME 97 fL (79.0-98.0); PLATELET COUNT (AUTO) 269 K/uL (130-430); RED BLOOD CELL COUNT(AUTO) 2.78 MIL/uL (4.2-6.2); RED CELL DISTRIBUTION WIDTH 17.6 % (9.0-15.0); WHITE BLOOD COUNT (AUTO) 5.9 K/uL (4.8-10.8)
[2022-03-22 07:12] LABS: ANION GAP 6 (5-15); CALCIUM 8.5 mg/dL (8.4-11.0); CHLORIDE 105 mmol/L (98-107); CREATININE 0.43 mg/dL (0.55-1.30); GLUCOSE 131 mg/dL (70-99); UREA NITROGEN, BLOOD 30 mg/dL (8-21)
[2022-03-22 07:13] LABS: INR 1.2 (0.80-1.20); PROTHROMBIN TIME 12.5 SECS (9.5-12.5)
[2022-03-22] MEDS: IPRATROPIUM BROM 0.5 MG/2.5 ML VIAL.NEB (ATROVENT) INH SCH ×3 (07:23→19:44)
[2022-03-22] MEDS: ALBUTEROL SULFATE 0.083% 2.5 MG/3 ML VIAL.NEB INH SCH ×3 (07:23→19:44)
[2022-03-22] MEDS ORDERED: SIMETHICONE 40 MG/0.6 ML ML ONE (07:58)
[2022-03-22] MEDS: PANTOPRAZOLE SODIUM 40 MG/VIAL (PROTONIX) IVP SCH ×2 (09:11→21:51)
[2022-03-22] MEDS: CEFEPIME 2 GM in D5W 100 ML IV SCH ×2 (09:11→21:51)
[2022-03-22] MEDS: METHYLPREDNISOLONE SOD SUCC 40 MG/ML VIAL IVP SCH ×2 (09:11→21:51)
[2022-03-22 10:27] LABS: LYMPHOCYTES # (AUTO) 0.3 K/uL (1.0-5.5); LYMPHOCYTES % (AUTO) 5.6 % (20.5-51.5); MONOCYTES # (AUTO) 0.3 K/uL (0.0-1.0); MONOCYTES % (AUTO) 4.4 % (1.7-9.3); NEUTROPHILS # (AUTO) 5.3 K/uL (1.8-7.7)
[2022-03-22 10:28] LABS: BAND % (MANUAL) 3 % (0-6); BASOPHILS % (MANUAL) 3 % (0-2); EOSINOPHILS % (MANUAL) 6 % (0-7); LYMPHOCYTES % (MANUAL) 3 % (20-46); MONOCYTES % (MANUAL) 0 % (0-11)
[2022-03-22] MEDS ORDERED: NS IRRIG SOLN 1000 ML IR ONE (13:03)
[2022-03-22] MEDS ORDERED: WATER FOR IRRIGATION,STERILE 1,000 ML IRRIG.SOLN IR ONE (13:03)
[2022-03-22] MEDS ORDERED: BUPIVACAINE /EPINEPHRINE/PF 0.5% 30 ML VIAL INJ ONE (13:03)
[2022-03-22] MEDS ORDERED: NS 50 ML BAG IV ONE (13:03)
[2022-03-22] MEDS: POTASSIUM CHLORIDE 40 MEQ in NS 250 ML IV PRN (14:09)
[2022-03-22] MEDS: PHENYLEPHRINE HCL 100 MG in NS 240 ML IV PRN (15:33)
[2022-03-22] MEDS: D5NS 1,000 ML IV SCH (16:55)
[2022-03-22] MEDS: FUROSEMIDE 100 MG in D5W 90 ML IV SCH (20:00)
[2022-03-23] VITALS (40 sets, daily range): BP systolic 88–121
[2022-03-23] MEDS: ALBUTEROL SULFATE 0.083% 2.5 MG/3 ML VIAL.NEB INH SCH ×4 (01:56→19:39)
[2022-03-23] MEDS: IPRATROPIUM BROM 0.5 MG/2.5 ML VIAL.NEB (ATROVENT) INH SCH ×4 (01:57→19:39)
[2022-03-23] MEDS: DILTIAZEM HCL 30 MG TABLET PO SCH ×5 (05:47→23:33)
[2022-03-23 06:43] LABS: BASOPHILS # (AUTO) 0.1 K/uL (0.0-0.2); BASOPHILS % (AUTO) 0.5 % (0.0-2.0); HEMATOCRIT 31.6 % (36-54); HEMOGLOBIN 10.4 g/dL (14.0-18.0); LYMPHOCYTES # (AUTO) 0.3 K/uL (1.0-5.5); LYMPHOCYTES % (AUTO) 2.4 % (20.5-51.5); MEAN CORPUSCULAR HEMOGLOBIN 32 pg (27-31); MEAN CORPUSCULAR HGB CONC 33 % (32-36); MEAN CORPUSCULAR VOLUME 96 fL (79.0-98.0); MONOCYTES # (AUTO) 0.4 K/uL (0.0-1.0); MONOCYTES % (AUTO) 3.3 % (1.7-9.3); NEUTROPHILS # (AUTO) 12.7 K/uL (1.8-7.7); NEUTROPHILS % (AUTO) 93.8 % (40.0-70.0); PLATELET COUNT (AUTO) 301 K/uL (130-430); RED BLOOD CELL COUNT(AUTO) 3.31 MIL/uL (4.2-6.2)
[2022-03-23 07:01] LABS: ALANINE AMINOTRANSFERASE 98 U/L (12-78); ALBUMIN 1.9 g/dL (3.4-4.8); ANION GAP 9 (5-15); ASPARTATE AMINOTRANSFERASE 60 U/L (10-37); CALCIUM 8.6 mg/dL (8.4-11.0); CHLORIDE 105 mmol/L (98-107); CREATININE 0.47 mg/dL (0.55-1.30); GLUCOSE 132 mg/dL (70-99); TOTAL BILIRUBIN 1.1 mg/dL (0.0-1.0); UREA NITROGEN, BLOOD 33 mg/dL (8-21)
[2022-03-23 07:33] LABS: WHITE BLOOD COUNT (AUTO) 13.6 K/uL (4.8-10.8)
[2022-03-23] MEDS: D5NS 1,000 ML IV SCH ×2 (08:03→23:31)
[2022-03-23] MEDS: CEFEPIME 2 GM in D5W 100 ML IV SCH ×2 (08:04→21:14)
[2022-03-23] MEDS: METHYLPREDNISOLONE SOD SUCC 40 MG/ML VIAL IVP SCH ×2 (08:25→21:15)
[2022-03-23] MEDS: PANTOPRAZOLE SODIUM 40 MG/VIAL (PROTONIX) IVP SCH ×2 (08:25→21:14)
[2022-03-23] MEDS: ALBUMIN HUMAN 25% 50 ML IV SCH ×3 (11:16→23:07)
[2022-03-23] MEDS: MORPHINE 2 MG/ML INJ. SYRINGE IVP PRN (12:33)
[2022-03-23] MEDS: PHENYLEPHRINE HCL 100 MG in NS 240 ML IV PRN (14:46)
[2022-03-23] MEDS ORDERED: NALOXONE HCL 0.4 MG/ML AMP (NARCAN) IVP PRN (17:15)
[2022-03-23] MEDS ORDERED: DIGOXIN 0.5 MG/2 ML AMP IVP ONE (19:30)
[2022-03-23] MEDS: FUROSEMIDE 100 MG in D5W 90 ML IV SCH (20:00)
[2022-03-23] MEDS: HYDROcodone/ACETAMIN 5-325 MG TAB (NORCO/ VICODIN) GT PRN (21:47)
[2022-03-23] MEDS: MIDODRINE HCL 5 MG TABLET (PROAMATINE) GT SCH ×2 (21:49→21:50)
[2022-03-24] VITALS (30 sets, daily range): BP systolic 94–164
[2022-03-24] MEDS: ALBUTEROL SULFATE 0.083% 2.5 MG/3 ML VIAL.NEB INH SCH ×4 (01:00→19:35)
[2022-03-24] MEDS: IPRATROPIUM BROM 0.5 MG/2.5 ML VIAL.NEB (ATROVENT) INH SCH ×4 (01:00→19:35)
[2022-03-24] MEDS: ALBUMIN HUMAN 25% 50 ML IV SCH ×3 (05:17→16:21)
[2022-03-24] MEDS: DILTIAZEM HCL 30 MG TABLET PO SCH ×3 (05:18→17:28)
[2022-03-24 07:35] LABS: ANION GAP 6 (5-15); BASOPHILS % (AUTO) 0.2 % (0.0-2.0); CALCIUM 8.3 mg/dL (8.4-11.0); CHLORIDE 108 mmol/L (98-107); CREATININE 0.29 mg/dL (0.55-1.30); EOSINOPHILS % (AUTO) 0.4 % (0.0-4.0); GLUCOSE 150 mg/dL (70-99); HEMATOCRIT 23.5 % (36-54); HEMOGLOBIN 7.7 g/dL (14.0-18.0); LYMPHOCYTES # (AUTO) 0.3 K/uL (1.0-5.5); LYMPHOCYTES % (AUTO) 4.1 % (20.5-51.5); MEAN CORPUSCULAR HEMOGLOBIN 32 pg (27-31); MEAN CORPUSCULAR HGB CONC 33 % (32-36); MEAN CORPUSCULAR VOLUME 97 fL (79.0-98.0); MONOCYTES # (AUTO) 0.2 K/uL (0.0-1.0); MONOCYTES % (AUTO) 3.3 % (1.7-9.3); NEUTROPHILS # (AUTO) 6.7 K/uL (1.8-7.7); PLATELET COUNT (AUTO) 156 K/uL (130-430); RED BLOOD CELL COUNT(AUTO) 2.42 MIL/uL (4.2-6.2); UREA NITROGEN, BLOOD 31 mg/dL (8-21); WHITE BLOOD COUNT (AUTO) 7.2 K/uL (4.8-10.8)
[2022-03-24] MEDS: CEFEPIME 2 GM in D5W 100 ML IV SCH ×2 (08:50→20:47)
[2022-03-24] MEDS: PANTOPRAZOLE SODIUM 40 MG/VIAL (PROTONIX) IVP SCH ×2 (08:55→20:47)
[2022-03-24] MEDS: MIDODRINE HCL 5 MG TABLET (PROAMATINE) GT SCH ×3 (08:55→20:46)
[2022-03-24] MEDS: METHYLPREDNISOLONE SOD SUCC 40 MG/ML VIAL IVP SCH ×2 (09:01→20:47)
[2022-03-24 10:36] LABS: DIGOXIN 1.1 ng/mL (0.80-2.00)
[2022-03-24] MEDS: D5NS 1,000 ML IV SCH (15:20)
[2022-03-24] MEDS: FUROSEMIDE 100 MG in D5W 90 ML IV SCH (20:00)
[2022-03-25] VITALS (36 sets, daily range): BP systolic 106–150
[2022-03-25] MEDS: DILTIAZEM HCL 30 MG TABLET PO SCH ×5 (00:55→23:23)
[2022-03-25 06:41] LABS: HEMATOCRIT 23.9 % (36-54); HEMOGLOBIN 7.9 g/dL (14.0-18.0); LYMPHOCYTES # (AUTO) 0.2 K/uL (1.0-5.5); LYMPHOCYTES % (AUTO) 2.6 % (20.5-51.5); MEAN CORPUSCULAR HEMOGLOBIN 32 pg (27-31); MEAN CORPUSCULAR HGB CONC 33 % (32-36); MEAN CORPUSCULAR VOLUME 96 fL (79.0-98.0); MONOCYTES # (AUTO) 0.4 K/uL (0.0-1.0); MONOCYTES % (AUTO) 5.1 % (1.7-9.3); NEUTROPHILS # (AUTO) 6.5 K/uL (1.8-7.7); NEUTROPHILS % (AUTO) 92.3 % (40.0-70.0); PLATELET COUNT (AUTO) 127 K/uL (130-430); RED BLOOD CELL COUNT(AUTO) 2.48 MIL/uL (4.2-6.2); RED CELL DISTRIBUTION WIDTH 17.7 % (9.0-15.0)
[2022-03-25 06:59] LABS: ANION GAP 8 (5-15); CALCIUM 8.5 mg/dL (8.4-11.0); CHLORIDE 109 mmol/L (98-107); CREATININE 0.46 mg/dL (0.55-1.30); GLUCOSE 177 mg/dL (70-99); UREA NITROGEN, BLOOD 30 mg/dL (8-21)
[2022-03-25] MEDS: ALBUTEROL SULFATE 0.083% 2.5 MG/3 ML VIAL.NEB INH SCH ×3 (07:43→19:55)
[2022-03-25] MEDS: IPRATROPIUM BROM 0.5 MG/2.5 ML VIAL.NEB (ATROVENT) INH SCH ×3 (07:43→19:55)
[2022-03-25] MEDS: HYDROcodone/ACETAMIN 5-325 MG TAB (NORCO/ VICODIN) GT PRN (07:55)
[2022-03-25] MEDS: MIDODRINE HCL 5 MG TABLET (PROAMATINE) GT SCH ×3 (08:11→21:23)
[2022-03-25] MEDS: PANTOPRAZOLE SODIUM 40 MG/VIAL (PROTONIX) IVP SCH ×2 (08:11→21:24)
[2022-03-25] MEDS: METHYLPREDNISOLONE SOD SUCC 40 MG/ML VIAL IVP SCH ×2 (08:11→21:24)
[2022-03-25] MEDS: CEFEPIME 2 GM in D5W 100 ML IV SCH ×2 (08:11→21:23)
[2022-03-25] MEDS: D5NS 1,000 ML IV SCH (16:13)
[2022-03-25] MEDS: FUROSEMIDE 100 MG in D5W 90 ML IV SCH (20:00)
[2022-03-26] VITALS (39 sets, daily range): BP systolic 104–161
[2022-03-26] MEDS: ALBUTEROL SULFATE 0.083% 2.5 MG/3 ML VIAL.NEB INH SCH ×4 (00:55→19:55)
[2022-03-26] MEDS: IPRATROPIUM BROM 0.5 MG/2.5 ML VIAL.NEB (ATROVENT) INH SCH ×4 (00:55→19:55)
[2022-03-26] MEDS: DILTIAZEM HCL 30 MG TABLET PO SCH ×4 (06:27→23:52)
[2022-03-26 07:22] LABS: BASOPHILS % (AUTO) 0.2 % (0.0-2.0); HEMATOCRIT 25.8 % (36-54); HEMOGLOBIN 8.5 g/dL (14.0-18.0); LYMPHOCYTES # (AUTO) 0.2 K/uL (1.0-5.5); LYMPHOCYTES % (AUTO) 3.3 % (20.5-51.5); MEAN CORPUSCULAR HEMOGLOBIN 32 pg (27-31); MEAN CORPUSCULAR HGB CONC 33 % (32-36); MEAN CORPUSCULAR VOLUME 97 fL (79.0-98.0); MONOCYTES # (AUTO) 0.3 K/uL (0.0-1.0); MONOCYTES % (AUTO) 4.7 % (1.7-9.3); NEUTROPHILS # (AUTO) 6.9 K/uL (1.8-7.7); NEUTROPHILS % (AUTO) 91.8 % (40.0-70.0); PLATELET COUNT (AUTO) 113 K/uL (130-430); RED BLOOD CELL COUNT(AUTO) 2.66 MIL/uL (4.2-6.2); RED CELL DISTRIBUTION WIDTH 18.3 % (9.0-15.0); WHITE BLOOD COUNT (AUTO) 7.5 K/uL (4.8-10.8)
[2022-03-26 07:49] LABS: ANION GAP 7 (5-15); CALCIUM 8.8 mg/dL (8.4-11.0); CHLORIDE 109 mmol/L (98-107); CREATININE 0.44 mg/dL (0.55-1.30); GLUCOSE 174 mg/dL (70-99); UREA NITROGEN, BLOOD 32 mg/dL (8-21)
[2022-03-26] MEDS: MIDODRINE HCL 5 MG TABLET (PROAMATINE) GT SCH ×3 (08:53→20:26)
[2022-03-26] MEDS: PANTOPRAZOLE SODIUM 40 MG/VIAL (PROTONIX) IVP SCH ×2 (08:53→20:28)
[2022-03-26] MEDS: CEFEPIME 2 GM in D5W 100 ML IV SCH ×2 (08:53→20:27)
[2022-03-26] MEDS: METHYLPREDNISOLONE SOD SUCC 40 MG/ML VIAL IVP SCH ×2 (08:53→20:28)
[2022-03-26] MEDS: HYDROcodone/ACETAMIN 5-325 MG TAB (NORCO/ VICODIN) GT PRN ×2 (08:54→15:09)
[2022-03-26] MEDS: MORPHINE 2 MG/ML INJ. SYRINGE IVP PRN (11:56)
[2022-03-26] MEDS ORDERED: MORPHINE 2 MG/ML INJ. SYRINGE IVP PRN (12:15)
[2022-03-26] MEDS ORDERED: DIGOXIN 0.5 MG/2 ML AMP IVP ONE (15:00)
[2022-03-27] VITALS (45 sets, daily range): BP systolic 90–160
[2022-03-27] MEDS: IPRATROPIUM BROM 0.5 MG/2.5 ML VIAL.NEB (ATROVENT) INH SCH ×4 (01:00→19:38)
[2022-03-27] MEDS: ALBUTEROL SULFATE 0.083% 2.5 MG/3 ML VIAL.NEB INH SCH ×4 (01:00→19:37)
[2022-03-27] MEDS: DILTIAZEM HCL 30 MG TABLET PO SCH ×3 (05:50→17:38)
[2022-03-27 07:08] LABS: ALANINE AMINOTRANSFERASE 66 U/L (12-78); ALBUMIN 2.5 g/dL (3.4-4.8); ANION GAP 5 (5-15); ASPARTATE AMINOTRANSFERASE 46 U/L (10-37); CHLORIDE 109 mmol/L (98-107); CREATININE 0.29 mg/dL (0.55-1.30); GLUCOSE 168 mg/dL (70-99); TOTAL BILIRUBIN 0.7 mg/dL (0.0-1.0); UREA NITROGEN, BLOOD 36 mg/dL (8-21)
[2022-03-27] MEDS: CEFEPIME 2 GM in D5W 100 ML IV SCH ×2 (09:36→21:20)
[2022-03-27] MEDS: MIDODRINE HCL 5 MG TABLET (PROAMATINE) GT SCH ×3 (09:37→21:00)
[2022-03-27] MEDS: PANTOPRAZOLE SODIUM 40 MG/VIAL (PROTONIX) IVP SCH ×2 (09:38→21:21)
[2022-03-27] MEDS: METHYLPREDNISOLONE SOD SUCC 40 MG/ML VIAL IVP SCH ×2 (09:38→21:21)
[2022-03-27 11:07] LABS: BASOPHILS % (AUTO) 0.1 % (0.0-2.0); HEMATOCRIT 30.5 % (36-54); HEMOGLOBIN 9.6 g/dL (14.0-18.0); LYMPHOCYTES # (AUTO) 0.4 K/uL (1.0-5.5); LYMPHOCYTES % (AUTO) 2.6 % (20.5-51.5); MEAN CORPUSCULAR HEMOGLOBIN 31 pg (27-31); MEAN CORPUSCULAR HGB CONC 32 % (32-36); MEAN CORPUSCULAR VOLUME 99 fL (79.0-98.0); MONOCYTES % (AUTO) 6.8 % (1.7-9.3); NEUTROPHILS # (AUTO) 13.3 K/uL (1.8-7.7); NEUTROPHILS % (AUTO) 90.5 % (40.0-70.0); PLATELET COUNT (AUTO) 108 K/uL (130-430); RED BLOOD CELL COUNT(AUTO) 3.07 MIL/uL (4.2-6.2); RED CELL DISTRIBUTION WIDTH 19.3 % (9.0-15.0); WHITE BLOOD COUNT (AUTO) 14.7 K/uL (4.8-10.8)
[2022-03-27] MEDS ORDERED: DIGOXIN 0.5 MG/2 ML AMP IVP ONE (14:30)
[2022-03-27] MEDS ORDERED: METOPROLOL SUCCINATE 25 MG TAB.SR.24H (TOPROL XL) PO ONE (14:30)
[2022-03-27] MEDS: METOPROLOL SUCCINATE 25 MG TAB.SR.24H (TOPROL XL) PO SCH (21:21)
[2022-03-28] VITALS (33 sets, daily range): BP systolic 108–153
[2022-03-28] MEDS: ALBUTEROL SULFATE 0.083% 2.5 MG/3 ML VIAL.NEB INH SCH ×4 (00:13→19:50)
[2022-03-28] MEDS: IPRATROPIUM BROM 0.5 MG/2.5 ML VIAL.NEB (ATROVENT) INH SCH ×4 (00:13→19:50)
[2022-03-28] MEDS: DILTIAZEM HCL 30 MG TABLET PO SCH ×4 (05:31→17:55)
[2022-03-28 06:37] LABS: BASOPHILS % (AUTO) 0.1 % (0.0-2.0); HEMATOCRIT 27.5 % (36-54); LYMPHOCYTES # (AUTO) 0.2 K/uL (1.0-5.5); LYMPHOCYTES % (AUTO) 1.2 % (20.5-51.5); MEAN CORPUSCULAR HEMOGLOBIN 32 pg (27-31); MEAN CORPUSCULAR HGB CONC 33 % (32-36); MEAN CORPUSCULAR VOLUME 98 fL (79.0-98.0); MONOCYTES # (AUTO) 0.7 K/uL (0.0-1.0); MONOCYTES % (AUTO) 4.5 % (1.7-9.3); NEUTROPHILS % (AUTO) 94.2 % (40.0-70.0); PLATELET COUNT (AUTO) 101 K/uL (130-430); RED BLOOD CELL COUNT(AUTO) 2.82 MIL/uL (4.2-6.2); RED CELL DISTRIBUTION WIDTH 18.9 % (9.0-15.0); WHITE BLOOD COUNT (AUTO) 15.9 K/uL (4.8-10.8)
[2022-03-28] MEDS ORDERED: PROPOFOL DRIP 100 ML IV PRN (09:00)
[2022-03-28] MEDS: PANTOPRAZOLE SODIUM 40 MG/VIAL (PROTONIX) IVP SCH ×2 (09:21→20:13)
[2022-03-28] MEDS: METOPROLOL SUCCINATE 25 MG TAB.SR.24H (TOPROL XL) PO SCH ×2 (09:21→20:14)
[2022-03-28] MEDS: MIDODRINE HCL 5 MG TABLET (PROAMATINE) GT SCH ×3 (09:21→20:14)
[2022-03-28] MEDS: METHYLPREDNISOLONE SOD SUCC 40 MG/ML VIAL IVP SCH ×2 (09:21→20:14)
[2022-03-28] MEDS: CEFEPIME 2 GM in D5W 100 ML IV SCH ×2 (09:21→20:13)
[2022-03-28 09:37] LABS: ALANINE AMINOTRANSFERASE 76 U/L (12-78); ALBUMIN 2.6 g/dL (3.4-4.8); ANION GAP 8 (5-15); ASPARTATE AMINOTRANSFERASE 42 U/L (10-37); CALCIUM 9.3 mg/dL (8.4-11.0); CHLORIDE 108 mmol/L (98-107); CREATININE 0.39 mg/dL (0.55-1.30); GLUCOSE 147 mg/dL (70-99); TOTAL BILIRUBIN 0.8 mg/dL (0.0-1.0); UREA NITROGEN, BLOOD 33 mg/dL (8-21)
[2022-03-28] MEDS: FLUCONAZOLE 200 mg/ NS 100 ML IV SCH (12:24)
[2022-03-28] MEDS: HYDROcodone/ACETAMIN 5-325 MG TAB (NORCO/ VICODIN) GT PRN (20:22)
[2022-03-29] VITALS (33 sets, daily range): BP systolic 99–160
[2022-03-29] MEDS: DILTIAZEM HCL 30 MG TABLET PO SCH ×5 (00:16→23:21)
[2022-03-29] MEDS: IPRATROPIUM BROM 0.5 MG/2.5 ML VIAL.NEB (ATROVENT) INH SCH ×4 (01:16→20:25)
[2022-03-29] MEDS: ALBUTEROL SULFATE 0.083% 2.5 MG/3 ML VIAL.NEB INH SCH ×4 (01:16→20:25)
[2022-03-29 07:37] LABS: ALANINE AMINOTRANSFERASE 74 U/L (12-78); ALBUMIN 2.3 g/dL (3.4-4.8); ANION GAP 7 (5-15); ASPARTATE AMINOTRANSFERASE 41 U/L (10-37); CHLORIDE 107 mmol/L (98-107); GLUCOSE 155 mg/dL (70-99); TOTAL BILIRUBIN 0.7 mg/dL (0.0-1.0); UREA NITROGEN, BLOOD 37 mg/dL (8-21)
[2022-03-29] MEDS: METHYLPREDNISOLONE SOD SUCC 40 MG/ML VIAL IVP SCH ×2 (08:23→20:15)
[2022-03-29] MEDS: METOPROLOL SUCCINATE 25 MG TAB.SR.24H (TOPROL XL) PO SCH ×2 (08:24→20:16)
[2022-03-29] MEDS: PANTOPRAZOLE SODIUM 40 MG/VIAL (PROTONIX) IVP SCH ×2 (08:24→20:15)
[2022-03-29] MEDS: MIDODRINE HCL 5 MG TABLET (PROAMATINE) GT SCH ×3 (08:24→20:14)
[2022-03-29] MEDS: CEFEPIME 2 GM in D5W 100 ML IV SCH ×2 (08:25→20:14)
[2022-03-29 09:40] LABS: HEMATOCRIT 22.4 % (36-54); HEMOGLOBIN 7.4 g/dL (14.0-18.0); LYMPHOCYTES # (AUTO) 0.2 K/uL (1.0-5.5); LYMPHOCYTES % (AUTO) 1.5 % (20.5-51.5); MEAN CORPUSCULAR HEMOGLOBIN 32 pg (27-31); MEAN CORPUSCULAR HGB CONC 33 % (32-36); MEAN CORPUSCULAR VOLUME 96 fL (79.0-98.0); MONOCYTES # (AUTO) 0.6 K/uL (0.0-1.0); NEUTROPHILS # (AUTO) 10.7 K/uL (1.8-7.7); NEUTROPHILS % (AUTO) 93.5 % (40.0-70.0); RED BLOOD CELL COUNT(AUTO) 2.34 MIL/uL (4.2-6.2); RED CELL DISTRIBUTION WIDTH 18.6 % (9.0-15.0); WHITE BLOOD COUNT (AUTO) 11.5 K/uL (4.8-10.8)
[2022-03-29 11:29] LABS: PLATELET COUNT (AUTO) 66 K/uL (130-430)
[2022-03-29] MEDS: HYDROcodone/ACETAMIN 5-325 MG TAB (NORCO/ VICODIN) GT PRN (12:13)
[2022-03-29] MEDS: FLUCONAZOLE 200 mg/ NS 100 ML IV SCH (12:15)
[2022-03-29] MEDS ORDERED: FUROSEMIDE 20 MG/2 ML VIAL IVP ONE (17:00)
[2022-03-30] VITALS (29 sets, daily range): BP systolic 111–153
[2022-03-30] MEDS: ALBUTEROL SULFATE 0.083% 2.5 MG/3 ML VIAL.NEB INH SCH ×4 (01:46→19:26)
[2022-03-30] MEDS: IPRATROPIUM BROM 0.5 MG/2.5 ML VIAL.NEB (ATROVENT) INH SCH ×4 (01:46→19:26)
[2022-03-30] MEDS: DILTIAZEM HCL 30 MG TABLET PO SCH ×3 (06:02→17:22)
[2022-03-30 06:40] LABS: HEMATOCRIT 26.7 % (36-54); LYMPHOCYTES # (AUTO) 0.2 K/uL (1.0-5.5); LYMPHOCYTES % (AUTO) 1.1 % (20.5-51.5); MEAN CORPUSCULAR HEMOGLOBIN 32 pg (27-31); MEAN CORPUSCULAR HGB CONC 34 % (32-36); MEAN CORPUSCULAR VOLUME 95 fL (79.0-98.0); MONOCYTES # (AUTO) 0.5 K/uL (0.0-1.0); MONOCYTES % (AUTO) 3.6 % (1.7-9.3); NEUTROPHILS # (AUTO) 13.5 K/uL (1.8-7.7); NEUTROPHILS % (AUTO) 95.3 % (40.0-70.0); PLATELET COUNT (AUTO) 75 K/uL (130-430); RED BLOOD CELL COUNT(AUTO) 2.81 MIL/uL (4.2-6.2); RED CELL DISTRIBUTION WIDTH 18.8 % (9.0-15.0); WHITE BLOOD COUNT (AUTO) 14.2 K/uL (4.8-10.8)
[2022-03-30 07:21] LABS: ANION GAP 7 (5-15); CALCIUM 9.2 mg/dL (8.4-11.0); CHLORIDE 105 mmol/L (98-107); CREATININE 0.35 mg/dL (0.55-1.30); GLUCOSE 138 mg/dL (70-99); UREA NITROGEN, BLOOD 43 mg/dL (8-21)
[2022-03-30] MEDS: MIDODRINE HCL 5 MG TABLET (PROAMATINE) GT SCH ×2 (09:26→14:05)
[2022-03-30] MEDS: CEFEPIME 2 GM in D5W 100 ML IV SCH (09:27)
[2022-03-30] MEDS: PANTOPRAZOLE SODIUM 40 MG/VIAL (PROTONIX) IVP SCH (09:27)
[2022-03-30] MEDS: METHYLPREDNISOLONE SOD SUCC 40 MG/ML VIAL IVP SCH (09:27)
[2022-03-30] MEDS: METOPROLOL SUCCINATE 25 MG TAB.SR.24H (TOPROL XL) PO SCH (09:27)
[2022-03-30] MEDS: FLUCONAZOLE 200 mg/ NS 100 ML IV SCH (11:36)
[2022-03-30] MEDS ORDERED: CAR30 PO (15:48)
[2022-03-30] MEDS ORDERED: METO-540 PO (15:48)
[2022-03-30] MEDS ORDERED: METH40VI46 IVP (15:48)
[2022-03-30] MEDS ORDERED: MIDO5TAB4 GT (15:48)
[2022-03-30] MEDS ORDERED: PROI40 IVP (15:48)
[2022-03-30] MEDS ORDERED: [UNRECOGNIZED DRUG - CODE] IV (15:48)
[2022-03-30] MEDS ORDERED: ALBU2.5V7 INH (15:48)
[2022-03-30] MEDS ORDERED: ACET325T PO (15:48)
[2022-03-30] MEDS ORDERED: CEFE2FRO IV (15:48)
[2022-03-30] MEDS ORDERED: IPRA0.2S53 INH (15:48)
== END 2022-03-30 21:15 | DRG 4 ==
LOC: SED 08:52 → SMU 14:13 → STU 02-24 01:49 → SIC 03-06 10:30
PROVIDERS: ADMIT Specialist; ATTEND Specialist
PROC: 0DB58ZX Excision of Esophagus, Via Natural or Artificial Opening Endoscopic, Diagnostic (ICD-10-PCS; principal; 2022-03-07 09:15)
PROC: 5A1955Z Respiratory Ventilation, Greater than 96 Consecutive Hours (ICD-10-PCS; 2022-03-09)
PROC: 0BH17EZ Insertion of Endotracheal Airway into Trachea, Via Natural or Artificial Opening (ICD-10-PCS; 2022-03-09)
PROC: 30233N1 Transfusion of Nonautologous Red Blood Cells into Peripheral Vein, Percutaneous Approach (ICD-10-PCS; 2022-03-11)
PROC: 05HY33Z Insertion of Infusion Device into Upper Vein, Percutaneous Approach (ICD-10-PCS; 2022-03-18)
PROC: 0B110Z4 Bypass Trachea to Cutaneous, Open Approach (ICD-10-PCS; 2022-03-22)
PROC: 0DH63UZ Insertion of Feeding Device into Stomach, Percutaneous Approach (ICD-10-PCS; 2022-03-22)
PROC: 0DB78ZX Excision of Stomach, Pylorus, Via Natural or Artificial Opening Endoscopic, Diagnostic (ICD-10-PCS; 2022-03-22)
DX: A41.52 Sepsis due to Pseudomonas (principal); J15.1 Pneumonia due to Pseudomonas; J96.21 Acute and chronic respiratory failure with hypoxia; K22.11 Ulcer of esophagus with bleeding; K29.71 Gastritis, unspecified, with bleeding; E43 Unspecified severe protein-calorie malnutrition; I48.20 Chronic atrial fibrillation, unspecified; I13.0 Hypertensive heart and chronic kidney disease with heart failure and stage 1 through stage 4 chronic kidney disease, or unspecified chronic kidney disease; J44.0 Chronic obstructive pulmonary disease with (acute) lower respiratory infection; I27.20 Pulmonary hypertension, unspecified; J84.10 Pulmonary fibrosis, unspecified; R65.20 Severe sepsis without septic shock; I25.10 Atherosclerotic heart disease of native coronary artery without angina pectoris; D64.9 Anemia, unspecified; K56.41 Fecal impaction; D69.6 Thrombocytopenia, unspecified; I36.1 Nonrheumatic tricuspid (valve) insufficiency; I34.0 Nonrheumatic mitral (valve) insufficiency; K40.90 Unilateral inguinal hernia, without obstruction or gangrene, not specified as recurrent; I50.9 Heart failure, unspecified; N18.9 Chronic kidney disease, unspecified; D72.819 Decreased white blood cell count, unspecified; K44.9 Diaphragmatic hernia without obstruction or gangrene; Z20.822 Contact with and (suspected) exposure to COVID-19; Z87.891 Personal history of nicotine dependence; Z99.81 Dependence on supplemental oxygen; Z79.899 Other long term (current) drug therapy; Z95.2 Presence of prosthetic heart valve; Z74.01 Bed confinement status; Z95.1 Presence of aortocoronary bypass graft; Z68.25 Body mass index [BMI] 25.0-25.9, adult
CPT/HCPCS: 0241U; 36415; 36600; 43239; 71045; 71270-TC; 76376; 76770; 80048; 80053; 80061; 80162; 81003; 82272; 82550; 82803-TC; 83605; 83735; 83880; 84100; 84443; 84484; 85007; 85018; 85025; 85027; 85610-TC; 85651-TC; 85730-TC; 86038; 86140; 86256; 86886; 86900; 86901; 86920; 87040; 87070-TC; 87081; 87086; 87186-TC; 87205-TC; 88305; 88312; 88313; 92610-GN; 93005; 93306; 93312; 94002; 94003; 94640; 94760; 96365; 97110-GP; 97112-GP; 97116-GP; 97530-GP; 99285; C9113; G0378; J0282; J0290; J0456; J0692; J0696; J0878; J1030; J1160; J1450; J1940; J2185; J2250; J2270; J2370; J2543; J2704; J2930; J3010; J3480; J3490; J7050; J7060; J7512; J7613; P9021; P9046